=== PATIENT | female | born 1970 | race Caucasian/White ===

== ENCOUNTER 2024-04-23 15:53 | Inpatient (IN) ==
--- NOTE | 2024-04-23 16:24 | Emergency Department Note ---
Impression & Plan Bronchitis, Obesity hypoventilation syndrome, Hypoxia ED Provider Note CHIEF COMPLAINT: Cough, "my doctor thinks I have pneumonia" HISTORY OF PRESENT ILLNESS: This 53-year-old female patient presents to the emergency department via private vehicle for evaluation of cough and shortness of breath. Symptoms been ongoing for about a week and a half. Patient was seen by her primary care provider and subsequently by [facility] emergency department. She was started on Augmentin. She is also using nebulizer treatments as well as an albuterol inhaler. The patient was on a 5-day course of steroids and states that that did not seem to help. She is currently on day 4 of Augmentin without any relief. The patient denies any leg pain or swelling. No chest pain. She states that is hard for her to catch her breath. History provided by: Patient REVIEW OF SYSTEMS: A 10 system review of systems was performed with positives and pertinent negatives listed in the history of present illness. All other systems were reviewed and are negative. ALLERGIES: Clotrimazole, metformin, miconazole, Klonopin PHYSICAL EXAM: VITALS: Vitals are noted on the nurse's note and reviewed by myself. GENERAL: This is a 53-year-old female, ill-appearing but in no acute distress, nondiaphoretic, well-developed well-nourished. SKIN: The skin was without rashes, erythema, edema, or bruising. There is no tenting of the skin. Capillary refill less than 2 seconds. HEAD: Normocephalic atraumatic. EARS: External auditory canals clear, tympanic membranes pearly alarcon without erythema or effusion bilaterally. No hemotympanum. Negative maddox sign EYES: Pupils equal round and reactive to light and accommodation. Conjunctivae without injection, sclerae without icterus. Extraocular movements intact. NOSE: Patent, turbinates without inflammation or discharge. No sinus tenderness. MOUTH: Mucous membranes moist. Tonsils are not enlarged. Pharynx without erythema or exudate. Uvula midline. Airway patent. Tongue does not deviate. NECK: Supple without nuchal rigidity. No lymphadenopathy. Cervical spine is nontender. No JVD. HEART: Regular rate and rhythm without murmurs gallops or rubs. LUNGS: Diffuse wheezes in all lung adame. Increased work of breathing. No retractions or accessory muscle use. ABDOMEN: Positive bowel sounds x 4. Soft, nontender, without masses or organomegaly. Gudino sign negative. No guarding or rebound tenderness. MUSCULOSKELETAL: No muscle atrophy, erythema, or edema noted. Full range of motion without joint tenderness in all extremities. No tenderness to palpation. Normal gait. Strength 5/5 throughout. NEURO: Patient was alert and oriented to person place and time. No focal neurological deficits. An order was placed for continuous vehicle monitor technician. The monitor showed a normal sinus rhythm at a ventricular rate of 66 bpm, per my interpretation. EKG was reviewed by myself and found to be Normal Sinus Rhythm at a rate of 68 beats per minute and per my interpretation reveals no ST elevation or depression. No T wave inversion. No significant change when compared to EKG completed on 09/25/2018. Imaging as interpreted by myself and the radiologist revealed cardiomegaly with mild pulmonary vascular congestion. No infiltrate, pleural effusion, or pneumothorax, with radiologist interpretation as above. I agree with the radiologist's findings as based upon my independent interpretation. EMERGENCY DEPARTMENT COURSE: The patient was seen and evaluated as above. The patient presents to the emergency department for cough and wheezing. Symptoms been ongoing for about a week and a half. On examination, the patient has diffuse wheezing in all lung adame with increased work of breathing. She was referred to the emergency department by her PCP for evaluation for possible pneumonia. IV access was obtained, labs were drawn. Patient was medicated with an hour- long DuoNeb and 60 mg IV Solu-Medrol. Labs reviewed. Per my interpretation, mild leukocytosis 11.18. No anemia or thrombocytopenia. Renal, hepatic function and electrolytes without significant abnormality. Coags normal. BNP 49. Troponin 8.4. Urinalysis negative for blood or evidence of infection. Respiratory bio fire testing was negative. Chest x-ray as above. EKG without ischemic changes. Administration of the DuoNeb treatment and Solu-Medrol, the patient was reassessed. At this time, the patient is hypoxic with an O2 saturation of 88% on room air. She was placed on oxygen via simple mask per nursing staff. I did reassess the patient at this time. Her work of breathing has somewhat improved and her wheezing is still present, but has improved as well. Given the hypoxia, I do recommend admission. I discussed the case with the [facility] hospitalist physician. Please see hospitalist dictation regarding ongoing management care of this patient. Case was discussed with the attending physician. I attest that I have personally reviewed the patient medication list. I attest that I have reviewed the patient's blood pressure and it was found to be elevated. Suspect this to be situational in nature GCS: 15 In the evaluation and treatment of this patient the following differential diagnoses were entertained: Reactive airway disease, pneumonia, pneumothorax, COPD, CHF, infections, cardiac ischemia, pulmonary embolism, musculoskeletal, gastrointestinal, as well as other pathologies. The chart was completed utilizing [employer] Speech voice recognition software. Grammatical errors, random word insertions, pronoun errors, and incomplete sentences are an occasional consequence of this system due to software limitations, ambient noise, and hardware issues. Any formal questions or concerns about the content, text, or information contained within the body of this dictation should be directly addressed to the provider for clarification. Past Med/Surg History Problem List (Updated 04/23/24 @ 22:42 by Jenn Duvall PA-C) Hypoxia (Acute) Obesity hypoventilation syndrome (Acute) Bronchitis (Acute) Encounter for pre-operative examination Vitamin D deficiency Anemia Diabetic neuropathy Diabetic retinopathy Diabetes mellitus type 2 with complications Essential tremor Obesity Esophageal reflux HLD (hyperlipidemia) Hypothyroidism Insomnia Generalized anxiety disorder Depression Trochanteric bursitis of left hip Ventral hernia Osteoarthritis Lumbar disc herniation with radiculopathy (Acute) Lumbar disc disease Chronic back pain (Acute) Asthma (Chronic) Hypertension (Chronic) Medical History Lumbar disc disease No surgeries - Difficulty laying flat or getting up from position PONV (postoperative nausea and vomiting) Frozen shoulder Right - as per patient "Does not function well at all" [place] (hard of hearing) no hearing aids Osteoarthritis Hypothyroidism HTN (hypertension) Hyperlipidemia Generalized anxiety disorder Essential tremor Diabetic neuropathy Diabetes mellitus, type 2 IDDM Depression Asthma PRN inh use Anemia Esophageal reflux Pancreatitis hx History of blood transfusion Infancy ?RH incompatibility Migraine hx Surgical History Hx of esophagogastroduodenoscopy History of gastric bypass (2014) History of hernia repair History of dental surgery History of laparoscopy H/O foot surgery S/P cholecystectomy Family History Mother Family history of diabetes mellitus Heart disease Father Family history of diabetes mellitus Heart disease COPD (chronic obstructive pulmonary disease) Social History Smoking Status: Former smoker Tobacco Type: Cigarettes Age Started Using Tobacco: 16; Age Quit Using Tobacco: 23; packs per day: 0.1; Cigarettes Per Day: SOCIAL SMOKER X5 YEAR; Second Hand Exposure: No; Do You Dip or Chew Tobacco: No; Hx Alcohol Use: No Hx Substance Use: No Preferred Language: Macedonian Communication Ability: Effective Visual Impairment: Partially Limited Hearing Ability: Hard of Hearing 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 Beliefs That Will Affect Care: None marital status: Current Living Situation: Spouse Current Living Situation Comment: does not live w/ spouse, lives w/ her animals current occupational status: disabled How many Children do You have: 0 Feels Safe at Home: Yes Childhood Exposure to Second-Hand Smoke: Yes Diet: other Diet Comment: does not follow a special diet caffeine: Yes Dental Care, Regularly: No Physical Activity Frequency: Does not Exercise Seatbelt Use: always Sunscreen Use: No Assistive Devices: Denture - Upper, Denture - Lower and Glasses Allergies Allergies Allergy/AdvReac Type Severity Reaction Status Date / Time clotrimazole Allergy Itching Verified 04/23/24 14:29 metformin Allergy Gastrointestinal Verified 04/23/24 14:29 Upset miconazole Allergy Itching Verified 04/23/24 14:29 adhesive tape AdvReac Itching Verified 04/23/24 14:29 clonazepam [From Klonopin] AdvReac Unknown Verified 04/23/24 14:29 Home Meds Home Medications Medication Instructions Recorded Confirmed pen needle, diabetic 31 gauge x 07/28/21 04/23/24 3/16" (BD Ultra-Fine Mini Pen Needle) aspirin 81 mg tablet,delayed 81 mg PO QAM 10/09/21 04/23/24 release amlodipine 10 mg tablet (Norvasc) 10 mg PO QAM 04/01/24 04/23/24 doxepin 6 mg tablet (Silenor) 6 mg PO HS 04/01/24 04/23/24 famotidine 40 mg tablet (Pepcid) 40 mg PO QAM 04/01/24 04/23/24 fluoxetine 40 mg capsule (Prozac) 80 mg PO QAM 04/01/24 04/23/24 fluticasone furoate 200 1 inh inhalation DAILY PRN 04/01/24 04/23/24 mcg-vilanterol 25 mcg/dose Shortness Of Breath inhalation powder (Breo Ellipta) levothyroxine 175 mcg tablet 175 mcg PO QAM 04/01/24 04/23/24 losartan 100 mg tablet (Cozaar) 100 mg PO QAM 04/01/24 04/23/24 pantoprazole 40 mg tablet,delayed 40 mg PO QAM 04/01/24 04/23/24 release (Protonix) primidone 50 mg tablet 100 mg PO HS 04/01/24 04/23/24 propranolol 120 mg capsule,24 120 mg PO QAM 04/01/24 04/23/24 hr,extended release amoxicillin 875 mg-potassium 1 tab PO BID 04/23/24 04/23/24 clavulanate 125 mg tablet Previous Rx's Medication Instructions Recorded blood-glucose meter (FreeStyle #1 ea 07/26/23 Lite Meter kit) lancets 31 gauge (Comfort Touch #100 ea 07/26/23 Ultra Thin Lancets) clobetasol 0.05 % topical cream 1 applic topical BID PRN rash #60 09/11/23 grams albuterol sulfate 90 mcg/actuation 2 puff inhalation Q4H PRN 01/28/24 aerosol inhaler Shortness Of Breath #8.5 grams blood sugar diagnostic (FreeStyle #540 ea 01/28/24 Lite Strips) insulin lispro 100 unit/mL See Rx Instructions subcut TIDM 02/04/24 subcutaneous pen (Humalog KwikPen #45 syringes (U-100) Insulin) betamethasone dipropionate 0.05 % 1 applic topical BID PRN skin 02/19/24 topical cream irritation #45 grams insulin glargine 100 unit/mL (3 93 unit (0.93 mL) subcut BID 90 02/26/24 mL) subcutaneous pen (Lantus days #167.4 mL Solostar U-100 Insulin) semaglutide 2 mg/dose (8 mg/3 mL) 2 mg (0.75 mL) subcut .weekly 90 03/03/24 subcutaneous pen injector (Ozempic) days #9 mL sucralfate 1 gram tablet (Carafate) 1 g PO .COMPLEX #360 tabs 03/12/24 tramadol 50 mg tablet 50 mg PO DAILY PRN Pain #30 tabs 03/19/24 pravastatin 40 mg tablet 40 mg PO QAM #90 tabs 04/14/24 benzonatate 200 mg capsule 200 mg PO TID PRN cough #60 caps 04/17/24 albuterol sulfate 1.25 mg/3 mL 1.25 mg (3 mL) inhalation Q6H PRN 04/21/24 solution for nebulization bronchospasm #75 mL compressor, for nebulizer #1 ea 04/21/24 tizanidine 4 mg tablet 4 mg PO Q8H PRN muscle spasticity 04/21/24 #60 tabs Results & Data (ED) Vital Signs Vital Signs - 24 hr 04/23/24 15:57 04/23/24 16:20 04/23/24 16:40 Temperature 36.9 C Temperature Source Temporal Artery Scan Pulse Rate 68 66 Pulse Rate [Apical] Pulse Rate [Right Brachial] Pulse Rhythm Regular Pulse Rhythm [Apical] Pulse Rhythm [Right Brachial] Pulse Strength [Apical] Pulse Strength [Right Brachial] Respiratory Rate 20 Respiratory Effort / Characteristics Non-Labored Spontaneous Respiratory Depth Normal Respiratory Pattern Blood Pressure 146/68 H Blood Pressure [Right Arm] Blood Pressure Mean 94 Blood Pressure Mean [Right Arm] Blood Pressure Position [Right Arm] Pulse Oximetry 92 Oxygen Delivery Method Room Air Room Air Oxygen Flow Rate Sepsis Recent Fever Within 48 Hours No Sepsis New/Unexplained Change in Mental Status No Sepsis Action Taken by Nursing No Action Required 04/23/24 16:40 04/23/24 16:40 04/23/24 17:00 Temperature Temperature Source Pulse Rate Pulse Rate [Apical] 65 Pulse Rate [Right Brachial] 65 Pulse Rhythm Pulse Rhythm [Apical] Pulse Rhythm [Right Brachial] Regular Pulse Strength [Apical] Pulse Strength [Right Brachial] Normal Respiratory Rate 22 21 Respiratory Effort / Characteristics Labored Short of Breath Spontaneous Short of Breath Respiratory Depth Deep Respiratory Pattern Blood Pressure Blood Pressure [Right Arm] 150/84 H Blood Pressure Mean Blood Pressure Mean [Right Arm] 106 Blood Pressure Position [Right Arm] Lying Pulse Oximetry 98 98 99 Oxygen Delivery Method Room Air Room Air Nebulizer Oxygen Flow Rate 7 Sepsis Recent Fever Within 48 Hours Sepsis New/Unexplained Change in Mental Status Sepsis Action Taken by Nursing 04/23/24 18:00 04/23/24 20:00 04/23/24 22:00 Temperature Temperature Source Pulse Rate Pulse Rate [Apical] 72 Pulse Rate [Right Brachial] 72 71 Pulse Rhythm Pulse Rhythm [Apical] Regular Pulse Rhythm [Right Brachial] Regular Regular Pulse Strength [Apical] Normal Pulse Strength [Right Brachial] Normal Normal Respiratory Rate 20 20 Respiratory Effort / Characteristics Labored Non-Labored Respiratory Depth Deep Normal Respiratory Pattern Regular Blood Pressure Blood Pressure [Right Arm] 174/80 H 165/79 H Blood Pressure Mean Blood Pressure Mean [Right Arm] 111 107 Blood Pressure Position [Right Arm] Lying Lying Pulse Oximetry 88 L 98 93 Oxygen Delivery Method Room Air Room Air Room Air Oxygen Flow Rate Sepsis Recent Fever Within 48 Hours Sepsis New/Unexplained Change in Mental Status Sepsis Action Taken by Nursing Laboratory Data 04/23/24 16:15 04/23/24 16:15 Lab Results 04/23/24 04/23/24 04/23/24 Range/Units 16:15 16:23 16:55 WBC 11.18 H (4.8-10.8) K/ul RBC 4.84 (4.20-5.40) M/uL Hgb 12.6 (12.0-16.0) g/dl Hct 38.1 (37.0-47.0) % MCV 78.7 L (80.0-100.0) fL MCH 26.0 (25.0-34.0) pg MCHC 33.1 (32.0-36.0) g/dL RDW Std Deviation 41.4 (36.4-46.3) fL RDW Coeff of Mickey 14.6 H (11.5-14.5) % Plt Count 301 (130-400) K/uL MPV 9.9 (9.4-12.4) fL Immature Gran % (Auto) 0.4 % Neut % (Auto) 64.7 % Lymph % (Auto) 24.0 % Vance % (Auto) 9.3 % Eos % (Auto) 1.2 % Baso % (Auto) 0.4 % Neut # (Auto) 7.24 H (1.40-6.50) K/uL Lymph # (Auto) 2.68 (1.20-3.40) K/uL Vance # (Auto) 1.04 H (0.11-0.59) K/uL Eos # (Auto) 0.13 (0.00-0.50) K/uL Baso # (Auto) 0.04 (0.00-0.20) K/uL Immature Gran # (Auto) 0.05 (0.01-0.20) K/uL PT 10.9 (9.0-12.0) Seconds INR 1.0 (0.9-1.1) APTT 28 (21-31) Seconds PTT Ratio 1.0 VBG pH (7.36-7.41) VBG pCO2 (38-50) mmHg VBG pO2 mmHg VBG HCO3 mmol/L VBG O2 Saturation % VBG Base Excess mEq/L Sodium 135 L (136-145) mmol/L Potassium 4.0 (3.5-5.1) mmol/L Chloride 97 L (98-107) mmol/L Carbon Dioxide 29 (21-32) mmol/L Anion Gap 9 (3-11) BUN 23 (6-23) mg/dl Creatinine 0.98 (0.6-1.2) mg/dl Est Cr Clr Drug Dosing 92.4 ml/min eGFR 68.16 BUN/Creatinine Ratio 23.5 H (10-20) Glucose 95 (70-99(Fasting)) mg/dl Calcium 9.1 (8.6-10.3) mg/dl Magnesium 2.2 (1.7-2.4) mg/dl Total Bilirubin 0.8 (0.2-1.0) mg/dl AST 31 (13-39) U/L ALT 36 (7-52) U/L Alkaline Phosphatase 110 H (34-104) U/L Troponin I High Sens 8.4 (0-14) pg/ml B-Natriuretic Peptide 49 (0-100) pg/ml Total Protein 7.9 (6.0-8.3) gm/dl Albumin 3.7 (3.4-5.0) gm/dl Globulin 4.2 H (2.5-4.0) gm/dl Albumin/Globulin Ratio 0.9 (0.9-2) Procalcitonin 0.12 (0-0.5) ng/ml Urine Color Urine Appearance (Clear) Urine pH (4.5-7.5) Ur Specific Wilson (1.000-1.030) Urine Protein (Negative) Urine Glucose (UA) (Negative) Urine Ketones (Negative) Urine Blood (Negative) Urine Nitrite (Negative) Urine Bilirubin (Negative) Urine Urobilinogen (Negative) Ur Leukocyte Esterase (Negative) Urine WBC (Auto) (0-5) /hpf Urine RBC (Auto) (0-2) /hpf U Hyaline Cast (Auto) (0-2) /lpf U Epithel Cells (Auto) (0-2) /hpf Urine Bacteria (Auto) (None Seen) Adenovirus (PCR) Not Detected (NotDetected) B. pertussis DNA (PCR) Not Detected (NotDetected) B.parapertussis DNA PCR Not Detected (NotDetected) C. pneumoniae DNA (PCR) Not Detected (NotDetected) Coronavirus OC43 (PCR) Not Detected (NotDetected) Coronavirus HKU1 (PCR) Not Detected (NotDetected) Coronavirus 229E (PCR) Not Detected (NotDetected) SARS-CoV-2 (PCR) Not Detected (NotDetected) Coronavirus NL63 (PCR) Not Detected (NotDetected) Human Metapneumovir PCR Not Detected (NotDetected) Influenza Type A (PCR) Not Detected (NotDetected) Influenza Type B (PCR) Not Detected (NotDetected) M. pneumoniae (PCR) Not Detected (NotDetected) Parainfluenza 1 (PCR) Not Detected (NotDetected) Parainfluenza 2 (PCR) Not Detected (NotDetected) Parainfluenza 3 (PCR) Not Detected (NotDetected) Parainfluenza 4 (PCR) Not Detected (NotDetected) RSV (PCR) Not Detected (NotDetected) Entero/Rhino (PCR) Not Detected (NotDetected) 04/23/24 04/23/24 Range/Units 18:26 Unknown WBC (4.8-10.8) K/ul RBC (4.20-5.40) M/uL Hgb (12.0-16.0) g/dl Hct (37.0-47.0) % MCV (80.0-100.0) fL MCH (25.0-34.0) pg MCHC (32.0-36.0) g/dL RDW Std Deviation (36.4-46.3) fL RDW Coeff of Mickey (11.5-14.5) % Plt Count (130-400) K/uL MPV (9.4-12.4) fL Immature Gran % (Auto) % Neut % (Auto) % Lymph % (Auto) % Vance % (Auto) % Eos % (Auto) % Baso % (Auto) % Neut # (Auto) (1.40-6.50) K/uL Lymph # (Auto) (1.20-3.40) K/uL Vance # (Auto) (0.11-0.59) K/uL Eos # (Auto) (0.00-0.50) K/uL Baso # (Auto) (0.00-0.20) K/uL Immature Gran # (Auto) (0.01-0.20) K/uL PT (9.0-12.0) Seconds INR (0.9-1.1) APTT (21-31) Seconds PTT Ratio VBG pH 7.44 H (7.36-7.41) VBG pCO2 38 (38-50) mmHg VBG pO2 58 mmHg VBG HCO3 26 mmol/L VBG O2 Saturation 89.9 % VBG Base Excess 1.7 mEq/L Sodium (136-145) mmol/L Potassium (3.5-5.1) mmol/L Chloride (98-107) mmol/L Carbon Dioxide (21-32) mmol/L Anion Gap (3-11) BUN (6-23) mg/dl Creatinine (0.6-1.2) mg/dl Est Cr Clr Drug Dosing ml/min eGFR BUN/Creatinine Ratio (10-20) Glucose (70-99(Fasting)) mg/dl Calcium (8.6-10.3) mg/dl Magnesium (1.7-2.4) mg/dl Total Bilirubin (0.2-1.0) mg/dl AST (13-39) U/L ALT (7-52) U/L Alkaline Phosphatase (34-104) U/L Troponin I High Sens (0-14) pg/ml B-Natriuretic Peptide (0-100) pg/ml Total Protein (6.0-8.3) gm/dl Albumin (3.4-5.0) gm/dl Globulin (2.5-4.0) gm/dl Albumin/Globulin Ratio (0.9-2) Procalcitonin (0-0.5) ng/ml Urine Color Yellow Urine Appearance Clear (Clear) Urine pH 5.5 (4.5-7.5) Ur Specific Wilson 1.013 (1.000-1.030) Urine Protein 2+ H (Negative) Urine Glucose (UA) Negative (Negative) Urine Ketones Negative (Negative) Urine Blood Negative (Negative) Urine Nitrite Negative (Negative) Urine Bilirubin Negative (Negative) Urine Urobilinogen Negative (Negative) Ur Leukocyte Esterase Trace H (Negative) Urine WBC (Auto) 0-5 (0-5) /hpf Urine RBC (Auto) 0-2 (0-2) /hpf U Hyaline Cast (Auto) 3-5 H (0-2) /lpf U Epithel Cells (Auto) 0-2 (0-2) /hpf Urine Bacteria (Auto) None Seen (None Seen) Adenovirus (PCR) (NotDetected) B. pertussis DNA (PCR) (NotDetected) B.parapertussis DNA PCR (NotDetected) C. pneumoniae DNA (PCR) (NotDetected) Coronavirus OC43 (PCR) (NotDetected) Coronavirus HKU1 (PCR) (NotDetected) Coronavirus 229E (PCR) (NotDetected) SARS-CoV-2 (PCR) (NotDetected) Coronavirus NL63 (PCR) (NotDetected) Human Metapneumovir PCR (NotDetected) Influenza Type A (PCR) (NotDetected) Influenza Type B (PCR) (NotDetected) M. pneumoniae (PCR) (NotDetected) Parainfluenza 1 (PCR) (NotDetected) Parainfluenza 2 (PCR) (NotDetected) Parainfluenza 3 (PCR) (NotDetected) Parainfluenza 4 (PCR) (NotDetected) RSV (PCR) (NotDetected) Entero/Rhino (PCR) (NotDetected) Administered Medications Discontinued Medications Albuterol (Albut/Ipratrop 3mg/0.5mg Neb 3 Ml Vial) 12 ml NEB ONE ONE; Protocol Stop: 04/23/24 16:25 Last Admin: 04/23/24 16:36 Dose: 12 ml Documented By: JORDEN Methylprednisolone (Methylprednisolone 125 Mg/2 Ml Vial) 60 mg IV NOW STA Stop: 04/23/24 16:25 Last Admin: 04/23/24 16:37 Dose: 60 mg Documented By: JORDEN Imaging Data Radiologist's Impression: Chest X-Ray 04/23/24 16:11 INDICATION: Chest pain. TECHNIQUE: Frontal radiograph of the chest. COMPARISON: Radiograph from 05/16/2021. FINDINGS: Cardiomegaly. Mild pulmonary vascular congestion. No infiltrate, pleural effusion or pneumothorax. No acute osseous abnormality evident. IMPRESSION: Mild pulmonary vascular congestion. Electronically signed by Hitesh Pratt 04-23-2024 6:19 PM Discharge Plan Visit Data Chief Complaint: Shortness of Breath/Dyspnea Stated Complaint: CHEST PAIN, SOB, WHEEZING ED Provider: Alejandro Matt ED Midlevel Provider: Jenn Duvall Discharge Problem: Bronchitis, Obesity hypoventilation syndrome, Hypoxia Patient Disposition: Admitted As Inpatient Forms Stand Alone Forms: [facility] Prescriptions Prescriptions: No Action (DME) blood-glucose meter [FreeStyle Lite Meter] Kit See Rx Instructions .Route Qty: 1 0RF Rx Instructions: As directed test 6 x day dx E11.9 (DME) Comfort Touch Ult Thin Lancets 31 gauge misc See Rx Instructions .Route Qty: 100 3RF Rx Instructions: As directed (DME) FreeStyle Lite Strips Strip See Rx Instructions .Route Qty: 540 3RF Rx Instructions: Test 6 times daily albuterol sulfate 90 mcg/actuation HFA aerosol inhaler 2 puff INHALATION Q4H PRN (Reason: Shortness Of Breath) Qty: 8.5 1RF insulin lispro [Humalog KwikPen Insulin] 100 unit/mL insulin pen See Rx Instructions SUBCUT TIDM Qty: 45 1RF Rx Instructions: subcutaneously three times daily with meals; SLIDING SCALE <100 none 101- 150 take 5 U 151- 200 take 10 U 201- 250 take 15U 251- 300 take 20U 301-350 take 25U 351-400 take 30U >400 call betamethasone dipropionate 0.05 % cream 1 applic topical BID PRN (Reason: skin irritation) Qty: 45 0RF Ozempic 2 mg/dose (8 mg/3 mL) pen injector 2 mg subcut .weekly 90 Days Qty: 9 3RF Rx Instructions: sucralfate [Carafate] 1 gram tablet 1 g PO .COMPLEX Qty: 360 2RF Rx Instructions: 1 g orally take 1 tablet by mouth before meals and at bedtime; tramadol 50 mg tablet 50 mg PO DAILY PRN (Reason: Pain) Qty: 30 0RF pravastatin 40 mg tablet 40 mg PO QAM Qty: 90 3RF tizanidine 4 mg tablet 4 mg PO Q8H PRN (Reason: muscle spasticity) Qty: 60 3RF (DME) compressor, for nebulizer Device See Rx Instructions .Route Qty: 1 0RF Rx Instructions: Every 6 hours as directed as needed albuterol sulfate 1.25 mg/3 mL solution for nebulization 1.25 mg inhalation Q6H PRN (Reason: bronchospasm) Qty: 75 1RF (DME) pen needle, diabetic [BD Ultra-Fine Mini Pen Needle] 31 gauge x 3/16" needle See Rx Instructions .Route Rx Instructions: As directed insulin glargine [Lantus Solostar U-100 Insulin] 100 unit/mL (3 mL) insulin pen 93 unit subcut BID 90 Days Qty: 167.4 3RF amoxicillin-pot clavulanate 875-125 mg tablet 1 tab PO BID benzonatate 200 mg capsule 200 mg PO TID PRN (Reason: cough) Qty: 60 1RF clobetasol 0.05 % cream 1 applic topical BID PRN (Reason: rash) Qty: 60 0RF aspirin 81 mg Tablet,Delayed Release (Dr/Ec) 81 mg PO QAM propranolol 120 mg Capsule,Extended Release 24hr 120 mg PO QAM Patient Comments: "Its for essential tremors" fluoxetine [Prozac] 40 mg capsule 80 mg PO QAM levothyroxine 175 mcg tablet 175 mcg PO QAM primidone 50 mg tablet 100 mg PO HS famotidine [Pepcid] 40 mg tablet 40 mg PO QAM amlodipine [Norvasc] 10 mg tablet 10 mg PO QAM pantoprazole [Protonix] 40 mg tablet,delayed release (DR/EC) 40 mg PO QAM losartan [Cozaar] 100 mg tablet 100 mg PO QAM doxepin [Silenor] 6 mg tablet 6 mg PO HS fluticasone furoate-vilanterol [Breo Ellipta] 200-25 mcg/dose blister with device 1 inh inhalation DAILY PRN (Reason: Shortness Of Breath) Referrals Referrals: Nandini Isabel DO [Primary Care Provider] -
[2024-04-23] MEDS: ALBUT/IPRATROP 3MG/0.5MG NEB 3 ML VIAL NEB ONE (16:36)
[2024-04-23] MEDS: methylPREDNISolone 125 MG/2 ML VIAL IV STA (16:37)
[2024-04-23 16:42] LABS: Basophils # (auto) 0.04 K/uL (0.00-0.20); Basophils % (auto) 0.4 %; Eosinophils # (auto) 0.13 K/uL (0.00-0.50); Eosinophils % (auto) 1.2 %; Hematocrit (blood only) 38.1 % (37.0-47.0); Hemoglobin 12.6 g/dl (12.0-16.0); Immature Granulocytes # (auto) 0.05 K/uL (0.01-0.20); Immature Granulocytes % (auto) 0.4 %; Lymphocytes # (auto) 2.68 K/uL (1.20-3.40); Mean Corpuscular Hgb Conc 33.1 g/dL (32.0-36.0); Mean Corpuscular Volume 78.7 fL (80.0-100.0); Mean Platelet Volume 9.9 fL (9.4-12.4); Monocytes # (auto) 1.04 K/uL (0.11-0.59); Monocytes % (auto) 9.3 %; Neutrophils # (auto) 7.24 K/uL (1.40-6.50); Neutrophils % (auto) 64.7 %; Platelet Count 301 K/uL (130-400); RDW Coefficient of Variation 14.6 % (11.5-14.5); RDW Standard Deviation 41.4 fL (36.4-46.3); Red Blood Count 4.84 M/uL (4.20-5.40); White Blood Count 11.18 K/ul (4.8-10.8)
[2024-04-23 16:58] LABS: Albumin Globulin Ratio 0.9 (0.9-2); Albumin Level 3.7 gm/dl (3.4-5.0); BUN Creatinine Ratio 23.5 (10-20); Bilirubin,Total 0.8 mg/dl (0.2-1.0); Calcium 9.1 mg/dl (8.6-10.3); Creatinine Clr Calc Pharmacy 92.4 ml/min; Globulin 4.2 gm/dl (2.5-4.0); Magnesium 2.2 mg/dl (1.7-2.4); Total Protein 7.9 gm/dl (6.0-8.3)
[2024-04-23 17:03] LABS: Troponin I High Sensitivity 8.4 pg/ml (0-14)
[2024-04-23 17:05] LABS: Partial Thromboplastin Time 28 Seconds (21-31); Prothrombin Time 10.9 Seconds (9.0-12.0)
[2024-04-23 18:00] LABS: Adenovirus PCR Not Detected (NotDetected); Bordetella parapertussis PCR Not Detected (NotDetected); Bordetella pertussis PCR Not Detected (NotDetected); Chlamydia pneumoniae PCR Not Detected (NotDetected); Coronavirus 229E PCR Not Detected (NotDetected); Coronavirus CoV-2 (COVID19)PCR Not Detected (NotDetected); Coronavirus HKU1 PCR Not Detected (NotDetected); Coronavirus NL63 PCR Not Detected (NotDetected); Coronavirus OC43PCR Not Detected (NotDetected); Human Metapneumovirus PCR Not Detected (NotDetected); Influenza A PCR Not Detected (NotDetected); Influenza B PCR Not Detected (NotDetected); Mycoplasma pneumoniae PCR Not Detected (NotDetected); Parainfluenza Virus 1 PCR Not Detected (NotDetected); Parainfluenza Virus 2 PCR Not Detected (NotDetected); Parainfluenza Virus 3 PCR Not Detected (NotDetected); Parainfluenza Virus 4 PCR Not Detected (NotDetected); Respiratory Syncytial VirusPCR Not Detected (NotDetected); Rhinovirus/Enterovirus PCR Not Detected (NotDetected)
[2024-04-23 18:48] LABS: Appearance Urine Clear (Clear); Bacteria Urine Automated None Seen (None Seen); Bilirubin Urine Negative (Negative); Blood Urine Negative (Negative); Color Urine Yellow; Epithelial Cell Urine Auto 0-2 /hpf (0-2); Glucose Urine UA Negative (Negative); Ketones Urine Negative (Negative); Leukocyte Esterase Urine Trace (Negative); Nitrite Urine Negative (Negative); Protein Urine 2+ (Negative); RBC Urine Automated 0-2 /hpf (0-2); Specific Gravity Urine 1.013 (1.000-1.030); Urobilinogen Urine Negative (Negative); WBC Urine Automated 0-5 /hpf (0-5); pH Urine 5.5 (4.5-7.5)
--- NOTE | 2024-04-23 20:53 | History & Physical Report ---
Date of Service April 23, 2024 Assessment & Plan (1) Bronchitis: Plan: likely acute on chronic - discontinuing Augmentin rx from 04/20 due to low suspicion of bacterial pneumonia - continue home medications for bronchospasm and SOB - adding Duonebs Q4H to alternate with home albuterol - guaifenesin 1200mg BID to help expectorate - BiPAP/CPAP as needed nightly - incentive spirometer Q4H waking hours - pulmonology consult ordered - if MRSA nares / procal positive, can start doxycycline 100mg BID for 5 days - if condition worsens and clinical suspicion of pneumonia is high, cxr vs chest CT labs: - mildly elevated white count, may be related to recent prednisone course - biofire negative (2) Obesity hypoventilation syndrome: Plan: morbid obesity as a probable contributing factor to pt's bronchitis - satting 95% on room air currently, has O2 set to 6L/min - trend VBG with morning labs - meds and breathing treatments as above - pulmonology consult ordered (3) Asthma: Plan: chronic orders as above (4) Diabetes mellitus type 2 with complications: Plan: chronic holding home Ozempic ACHS glucose checks changing home insulin to the following: - lantus 45U BID - Novolog: correction factor 15mg/dL/unit; carb ratio 5g/unit Goal BSG range: 110-140 (5) Hypertension: Plan: continue home HTN regimen History of Present Illness Chief Complaint: SOB, cough Primary Care Provider: Nandini Isabel DO Shanell is a 53yo female with PMHx bronchitis, asthma, morbid obesity, DM2 with neuropathy and retinopathy on insulin presenting to the ED the a week and a half of worsening cough and SOB. Started with upper respiratory symptoms a week and a half ago, went to her PCP on 04/17 and they sent her home with a 5 day course of oral prednisone and benzonatate which she says didn't help her symptoms much. PCP also order her an albuterol nebulizer, which she feels isn't helping because she can't take deep enough breaths. Endorses that for the past 4 nights she has had to sleep in a recliner chair with back elevated, as she says it is hard for her to breathe when lying flat, which she notes is not typical for her. Has been taking all of her home asthma medications but denies significant relief. Went to [facility] on 04/20 for worsening symptoms, states they did not do a cxr but just discharged her with a 10 day course of Augmentin 875-125mg BID. Currently on day 4 and denies any improvement of cough or SOB, so she came to [facility] ER. Denies any fever, body aches, chills, sweats, chest pain, hemoptysis, dizziness, lightheadedness, headache, vision changes, abdominal pain. Denies any recent travel or exposure to any sick or symptomatic people. Currently lives at home with , 2 cats and a dog. Denies anything new inside home within the last few months or significant environmental exposure. Allergies Allergy/AdvReac Type Severity Reaction Status Date / Time clotrimazole Allergy Itching Verified 04/23/24 14:29 metformin Allergy Gastrointestinal Verified 04/23/24 14:29 Upset miconazole Allergy Itching Verified 04/23/24 14:29 adhesive tape AdvReac Itching Verified 04/23/24 14:29 clonazepam [From Klonopin] AdvReac Unknown Verified 04/23/24 14:29 Home Medications Medication Instructions Recorded Confirmed Type pen needle, diabetic 31 gauge x 07/28/21 04/23/24 History 3/16" (BD Ultra-Fine Mini Pen Needle) aspirin 81 mg tablet,delayed 81 mg PO QAM 10/09/21 04/23/24 History release blood-glucose meter (FreeStyle #1 ea 07/26/23 04/23/24 Rx Lite Meter kit) lancets 31 gauge (Comfort Touch #100 ea 07/26/23 04/23/24 Rx Ultra Thin Lancets) clobetasol 0.05 % topical cream 1 applic topical BID PRN rash #60 09/11/23 1 06/23/23 Rx grams albuterol sulfate 90 mcg/actuation 2 puff inhalation Q4H PRN 01/28/24 04/23/24 Rx aerosol inhaler Shortness Of Breath #8.5 grams blood sugar diagnostic (FreeStyle #540 ea 01/28/24 04/23/24 Rx Lite Strips) insulin lispro 100 unit/mL See Rx Instructions subcut TIDM 02/04/24 04/23/24 Rx subcutaneous pen (Humalog KwikPen #45 syringes (U-100) Insulin) betamethasone dipropionate 0.05 % 1 applic topical BID PRN skin 02/19/24 04/23/24 Rx topical cream irritation #45 grams insulin glargine 100 unit/mL (3 93 unit (0.93 mL) subcut BID 02/26/2412/09 Rx mL) subcutaneous pen (Lantus days #167.4 mL Solostar U-100 Insulin) semaglutide 2 mg/dose (8 mg/3 mL) 2 mg (0.75 mL) subcut .weekly 03/03/24 04/23/24 Rx subcutaneous pen injector (Ozempic) days #9 mL sucralfate 1 gram tablet (Carafate) 1 g PO .COMPLEX #360 tabs 03/12/24 04/23/24 Rx tramadol 50 mg tablet 50 mg PO DAILY PRN Pain #30 tabs 03/19/24 04/23/24 Rx amlodipine 10 mg tablet (Norvasc) 10 mg PO QAM 04/01/24 04/23/24 History doxepin 6 mg tablet (Silenor) 6 mg PO HS 04/01/24 04/23/24 History famotidine 40 mg tablet (Pepcid) 40 mg PO QAM 04/01/24 04/23/24 History fluoxetine 40 mg capsule (Prozac) 80 mg PO QAM 04/01/24 04/23/24 History fluticasone furoate 200 1 inh inhalation DAILY PRN 04/01/24 04/23/24 History mcg-vilanterol 25 mcg/dose Shortness Of Breath inhalation powder (Breo Ellipta) levothyroxine 175 mcg tablet 175 mcg PO QAM 04/01/24 04/23/24 History losartan 100 mg tablet (Cozaar) 100 mg PO QAM 04/01/24 04/23/24 History pantoprazole 40 mg tablet,delayed 40 mg PO QAM 04/01/24 04/23/24 History release (Protonix) primidone 50 mg tablet 100 mg PO HS 04/01/24 04/23/24 History propranolol 120 mg capsule,24 120 mg PO QAM 04/01/24 04/23/24 History hr,extended release pravastatin 40 mg tablet 40 mg PO QAM #90 tabs 04/14/24 04/23/24 Rx benzonatate 200 mg capsule 200 mg PO TID PRN cough #60 caps 04/17/24 04/23/24 Rx albuterol sulfate 1.25 mg/3 mL 1.25 mg (3 mL) inhalation Q6H PRN 04/21/24 04/23/24 Rx solution for nebulization bronchospasm #75 mL compressor, for nebulizer #1 ea 04/21/24 04/23/24 Rx tizanidine 4 mg tablet 4 mg PO Q8H PRN muscle spasticity 04/21/24 04/23/24 Rx #60 tabs amoxicillin 875 mg-potassium 1 tab PO BID 04/23/24 04/23/24 History clavulanate 125 mg tablet Past Med/Surg History Problem List (Updated 04/23/24 @ 22:42 by Jenn Duvall PA-C) Hypoxia (Acute) Obesity hypoventilation syndrome (Acute) Bronchitis (Acute) Encounter for pre-operative examination Vitamin D deficiency Anemia Diabetic neuropathy Diabetic retinopathy Diabetes mellitus type 2 with complications Essential tremor Obesity Esophageal reflux HLD (hyperlipidemia) Hypothyroidism Insomnia Generalized anxiety disorder Depression Trochanteric bursitis of left hip Ventral hernia Osteoarthritis Lumbar disc herniation with radiculopathy (Acute) Lumbar disc disease Chronic back pain (Acute) Asthma (Chronic) Hypertension (Chronic) Medical History Lumbar disc disease No surgeries - Difficulty laying flat or getting up from position PONV (postoperative nausea and vomiting) Frozen shoulder Right - as per patient "Does not function well at all" [place] (hard of hearing) no hearing aids Osteoarthritis Hypothyroidism HTN (hypertension) Hyperlipidemia Generalized anxiety disorder Essential tremor Diabetic neuropathy Diabetes mellitus, type 2 IDDM Depression Asthma PRN inh use Anemia Esophageal reflux Pancreatitis hx History of blood transfusion Infancy ?RH incompatibility Migraine hx Surgical History Hx of esophagogastroduodenoscopy History of gastric bypass (2014) History of hernia repair History of dental surgery History of laparoscopy H/O foot surgery S/P cholecystectomy Family History Mother Family history of diabetes mellitus Heart disease Father Family history of diabetes mellitus Heart disease COPD (chronic obstructive pulmonary disease) Social History Smoking Status: Former smoker Tobacco Type: Cigarettes Age Started Using Tobacco: 16; Age Quit Using Tobacco: 23; packs per day: 0.1; Cigarettes Per Day: SOCIAL SMOKER X5 YEAR; Second Hand Exposure: No; Do You Dip or Chew Tobacco: No; Hx Alcohol Use: No Hx Substance Use: No Preferred Language: Greek Communication Ability: Effective Visual Impairment: Partially Limited Hearing Ability: Hard of Hearing 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 Beliefs That Will Affect Care: None marital status: Current Living Situation: Spouse Current Living Situation Comment: does not live w/ spouse, lives w/ her animals current occupational status: disabled How many Children do You have: 0 Feels Safe at Home: Yes Childhood Exposure to Second-Hand Smoke: Yes Diet: other Diet Comment: does not follow a special diet caffeine: Yes Dental Care, Regularly: No Physical Activity Frequency: Does not Exercise Seatbelt Use: always Sunscreen Use: No Assistive Devices: Denture - Upper, Denture - Lower and Glasses Review of Systems Review of Systems: per HPI Physical Exam Physical Exam: Constitutional: A&Ox4, appears stated age, not appearing in acute distress HEENT: NC/AT, EOM intact, anicteric sclerae Respiratory: coarse breath sounds and scattered wheezes throughout, fair and equal air entry b/l Cardiovascular: regular rate and rhythm, no murmurs/rubs/gallops GI: abdomen soft, normoactive bowel sounds, nontender to palpation MSK: 5/5 strength in all extremities Results & Data Results & Data Vital Signs (Past 12 Hours) Vital Signs Temp Pulse Pulse Pulse Resp BP BP 04/23/24 20:00 72 72 20 174/80 H 04/23/24 18:00 04/23/24 17:00 65 21 04/23/24 16:40 04/23/24 16:40 65 22 150/84 H 04/23/24 16:40 04/23/24 16:20 66 04/23/24 15:57 36.9 C 68 20 146/68 H Pulse Ox O2 Del Method O2 Flow Rate 04/23/24 20:00 98 Room Air 04/23/24 18:00 88 L Room Air 04/23/24 17:00 99 Nebulizer 7 04/23/24 16:40 98 Room Air 04/23/24 16:40 98 Room Air 04/23/24 16:40 Room Air 04/23/24 16:20 04/23/24 15:57 92 Room Air Laboratory Results Abnormal lab results 04/23/24 04/23/24 04/23/24 Range/Units 16:15 18:26 Unknown WBC 11.18 H (4.8-10.8) K/ul MCV 78.7 L (80.0-100.0) fL RDW Coeff of Mickey 14.6 H (11.5-14.5) % Neut # (Auto) 7.24 H (1.40-6.50) K/uL Pender # (Auto) 1.04 H (0.11-0.59) K/uL VBG pH 7.44 H (7.36-7.41) Sodium 135 L (136-145) mmol/L Chloride 97 L (98-107) mmol/L BUN/Creatinine Ratio 23.5 H (10-20) Alkaline Phosphatase 110 H (34-104) U/L Globulin 4.2 H (2.5-4.0) gm/dl Urine Protein 2+ H (Negative) Ur Leukocyte Esterase Trace H (Negative) U Hyaline Cast (Auto) 3-5 H (0-2) /lpf Diagnostic Findings Chest X-Ray 04/23/24 16:11 INDICATION: Chest pain. TECHNIQUE: Frontal radiograph of the chest. COMPARISON: Radiograph from 05/16/2021. FINDINGS: Cardiomegaly. Mild pulmonary vascular congestion. No infiltrate, pleural effusion or pneumothorax. No acute osseous abnormality evident. IMPRESSION: Mild pulmonary vascular congestion. Supervising Physician Co-Signing Physician Notes Patient seen and examined, chart reviewed, case discussed with Justino Hayes and I agree with the assessment and plan as above except as otherwise noted Labs and images reviewed Shanell is a 53-year-old female with a past medical history of type II DM, obesity BMI 41.1, GERD, ventral hernia, chronic back pain, lumbar disc disease, hypertension who presented to the ER with cough and dyspnea. Cough and present shortness of breath began approximately 10 days ago, patient was on Augmentin/prednisone as an outpatient and was using nebulizers for underlying asthma but continues to progressively feel short of breath. On ER evaluation he was found to be hypoxic at 88%, with a mild leukocytosis, normal BMP/troponin, Chest x-ray reviewed, some pulmonary vascular congestion but no pulmonary edema and no evidence of lobar pneumonia. Her leukocytosis is minimal and without left shift, suspect related to steroids. Diffusely coarse breathing w/ rhonchi, without rales. BioFire is negative. Do not see evidence of lobar pneumonia on x-ray suspect bronchitis with concurrent asthma history patient. Denies history of tobacco use, denies COPD. Endorses history of asthma last PFTs many years ago. Wheezing reportedly improved following nebulizer treatment in ER but patient is hypoxic. Agree with treatment with flutter valve, incentive spirometry, Mucinex, DuoNebs as needed, continuing Breo. Suspect bronchitis + asthma exacerbation. No tachycardia. if MRSA nare/Pro-Brodie positive can tx with doxy x5 days, if negative discontinue antibiotics and treat as bronchitis and follow clinical progression. Procalcitonin ordered, white count trended, sputum culture pending. If high clinical suspicion for pneumonia or patient worsens, can follow-up with PA/lateral versus CT. Denies chest pain. Denies history of FL/CHF. Denies leg swelling other than some stasis when sleeping in her recliner. Notes when she lies flat she had increased dyspnea, but notes this is because the weight on her chest makes it hard to breath. Suspected OHS, given vascular congestion BNP evaluated which is normal, suspect OHS rather than CHF. VBG is added. If hypercapneic/resp acidosis is present --> NIV HS. History of type II DM, last A1c 8.5%. She is on sliding scale lispro and basal glargine 93 units twice daily. Admitting BSG is 95. She is continued on insulin 90 units twice daily with chested SSI CF 10/carb ratio 5. Due to extremely high requirements and steroid requirements pharmacy glycemic consult in place to follow and make adjustments as required. 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 BSG AC/at bedtime. Agree w/ above Resident Activity Tracking Resident Involvement: Resident Care Provided Care Provided: Adult Hospital Medicine (3) Asthma Asthma complication type: uncomplicated Asthma persistence: unspecified Asthma severity: unspecified severity Qualified Code(s): J45.909 - Unspecified asthma, uncomplicated (5) Hypertension Hypertension type: unspecified Qualified Code(s): I10 - Essential (primary) hypertension
[2024-04-23] MEDS ORDERED: PHARMACY GLYCEMIC MGMT CONSULT PRN (20:59)
[2024-04-23] MEDS ORDERED: GLUCAGON FOR INJ 1 MG VIAL SQ PRN (20:59)
[2024-04-23] MEDS ORDERED: DEXTROSE 50% 50 ML SYRINGE IV PRN (20:59)
[2024-04-23] MEDS ORDERED: GLUCOSE 40% GEL 15 GM TUBE PO PRN (20:59)
[2024-04-23] MEDS ORDERED: GLUCOSE 10 TAB/TUBE PO PRN (20:59)
[2024-04-23] MEDS ORDERED: POLYETHYLENE (MIRALAX) 17 GM PACK PO PRN (21:01)
[2024-04-23] MEDS ORDERED: ONDANSETRON INJ 2 MG/ML 2 ML VIAL IV PRN (21:01)
--- NOTE | 2024-04-23 21:06 | XRay Report ---
INDICATION: Chest pain. TECHNIQUE: Frontal radiograph of the chest. COMPARISON: Radiograph from 05/16/2021. FINDINGS: Cardiomegaly. Mild pulmonary vascular congestion. No infiltrate, pleural effusion or pneumothorax. No acute osseous abnormality evident. IMPRESSION: Mild pulmonary vascular congestion. Electronically signed by Hitesh Pratt 04-23-2024 6:19 PM
[2024-04-23 21:13] LABS: Base Excess VBG 1.7 mEq/L; HCO3 VBG 26 mmol/L; Oxygen Saturation VBG 89.9 %; PCO2 VBG 38 mmHg (38-50); PO2 VBG 58 mmHg; pH VBG 7.44 (7.36-7.41)
[2024-04-23] MEDS: LANTUS PER UNIT CHARGE SQ SCH (22:40)
[2024-04-23] MEDS: INSULIN ASPART PER UNIT CHARGE SC SCH (22:41)
[2024-04-23] MEDS ORDERED: traMADol HCL 50 MG TABLET PO PRN (23:34)
[2024-04-23] MEDS ORDERED: CLOBETASOL PROPIONATE 0.05% CREAM 15 GM TUBE TOP PRN (23:34)
[2024-04-23] MEDS ORDERED: FLUTICASONE/VILANTEROL 200/25MCG 14 PUFFS/INHALER INH PRN (23:34)
[2024-04-24] MEDS: ENOXAPARIN INJ 40 MG/0.4 ML SYR SQ SCH (00:05)
[2024-04-24] MEDS: INSULIN HUMAN REGULAR PER UNIT 10 UNITS in SYRINGE 9.9 ML IV ONE (00:06)
[2024-04-24] MEDS ORDERED: TRIAMCINOLONE ACET 0.5% CR 15 GM TUBE EXT PRN (00:12)
[2024-04-24] MEDS: SUCRALFATE 1 GM TAB PO SCH (00:54)
[2024-04-24] MEDS: tiZANidine HCL 4 MG TABLET PO PRN (00:54)
[2024-04-24] MEDS: MELATONIN 3 MG TAB PO PRN (00:54)
[2024-04-24] MEDS: INSULIN ASPART PER UNIT CHARGE SC SCH (01:16)
[2024-04-24] MEDS: INSULIN HUMAN REGULAR IV BOLUS 3 UNITS in SYRINGE 0 ML IV ONE (03:52)
[2024-04-24] MEDS: INSULIN REGULAR 250 UNITS in SODIUM CHLORIDE 0.9% 247.5 ML IV SCH (03:53)
[2024-04-24] MEDS: ALBUT/IPRATROP 3MG/0.5MG NEB 3 ML VIAL NEB SCH (03:56)
[2024-04-24] MEDS: LEVOTHYROXINE SODIUM 175 MCG TABLET PO SCH (06:13)
[2024-04-24] MEDS ORDERED: INSULIN ASPART PER UNIT CHARGE SC SCH (07:30)
[2024-04-24 08:30] LABS: Base Excess VBG 2.1 mEq/L; HCO3 VBG 29 mmol/L; Oxygen Saturation VBG < 60.0 %; PCO2 VBG 52 mmHg (38-50); PO2 VBG 30 mmHg; pH VBG 7.35 (7.36-7.41)
[2024-04-24] MEDS: LANTUS PER UNIT CHARGE SQ SCH (08:32)
[2024-04-24] MEDS: FLUoxetine HCL 20 MG CAP PO SCH (08:38)
[2024-04-24] MEDS: LOSARTAN POTASSIUM 50 MG TAB PO SCH (08:39)
[2024-04-24] MEDS: predniSONE 20 MG TAB PO SCH (08:40)
[2024-04-24] MEDS: PANTOprazole 40 MG TAB PO SCH (08:40)
[2024-04-24] MEDS: PRAVASTATIN SOD 40 MG TAB PO SCH (08:41)
[2024-04-24] MEDS: PROPRANOLOL HCL 60 MG LA CAP PO SCH (08:41)
[2024-04-24] MEDS: guaiFENesin 600 MG TABCR PO SCH (08:42)
[2024-04-24] MEDS: ASPIRIN 81 MG ECTAB PO SCH (08:43)
[2024-04-24] MEDS: amLODIPine BESYLATE 5 MG TAB PO SCH (08:43)
[2024-04-24 08:44] LABS: Appearance Urine Clear (Clear); Bacteria Urine Automated None Seen (None Seen); Bilirubin Urine Negative (Negative); Blood Urine Negative (Negative); Color Urine Yellow; Epithelial Cell Urine Auto 0-2 /hpf (0-2); Glucose Urine UA 3+ (Negative); Hyaline Casts Urine Present /lpf (None Presnt); Ketones Urine Trace (Negative); Leukocyte Esterase Urine Negative (Negative); Nitrite Urine Negative (Negative); Protein Urine 2+ (Negative); RBC Urine Automated 0-2 /hpf (0-2); Specific Gravity Urine 1.019 (1.000-1.030); Urobilinogen Urine Negative (Negative); WBC Urine Automated 0-5 /hpf (0-5); pH Urine 5.5 (4.5-7.5)
[2024-04-24 09:06] LABS: Albumin Globulin Ratio 0.9 (0.9-2); Albumin Level 3.4 gm/dl (3.4-5.0); BUN Creatinine Ratio 32.8 (10-20); Bilirubin,Total 0.3 mg/dl (0.2-1.0); Calcium 9.2 mg/dl (8.6-10.3); Creatinine Clr Calc Pharmacy 76.1 ml/min; Potassium 4.5 mmol/L (3.5-5.1); Total Protein 7.4 gm/dl (6.0-8.3)
--- NOTE | 2024-04-24 10:20 | Electrocardiogram Report ---
Test Reason : Blood Pressure : */* mmHG Vent. Rate : 68 BPM Atrial Rate : 68 BPM P-R Int : 146 ms QRS Dur : 78 ms QT Int : 430 ms P-R-T Axes : 51 42 60 degrees QTcB Int : 457 ms Normal sinus rhythm Normal ECG When compared with ECG of 25-Sep-2018 14:39, No significant change was found Confirmed by Prateek Celis ([id number]) on 04/24/2024 10:20:12 AM Referred By: REFERRED SELF Confirmed By: Prateek Celis
--- NOTE | 2024-04-24 11:05 | Pulmonary Consultation ---
Date of Consultation April 24, 2024 Assessment & Plan (1) Asthma-COPD overlap syndrome: (2) Asthmatic bronchitis with acute exacerbation: (3) Obesity: Plan Chest x-ray 04/23/2024 personally reviewed: Portable film, good inspiratory effort, bilateral costophrenic and cardiophrenic angles are clean, questionable retrocardiac opacity No other clear lung infiltrate -- Acute exacerbation of asthma-COPD overlap syndrome Used to smoke socially for approximately 15 years, quit at the age of 33 Respiratory BioFire negative for everything on 04/23/2024 Procalcitonin 0.12 Absolute eosinophil count 200 on 02/26/2024 -- Asthma On Breo 200 as an outpatient Would recommend to change to Trelegy 200 on a daily basis on discharge Add montelukast to the patient's regimen --Probable MOISES/OHS Recommend outpatient polysomnography Plan: DC Breo and rather put the patient on Brovana and budesonide nebulized treatment Add Mucomyst to the regimen along with Mucinex and flutter valve Add montelukast to her regimen Continue with prednisone Recommend to consider changing propranolol to some other medication Case was discussed with RN at bedside Please note the above document was generated using voice recognition software. It may contain grammatical, syntax or spelling errors.Any formal questions or concerns about the content, text or information contained within the body of this dictation should be directly addressed to the provider for clarification. History of Present Illness Attending Physician: Richard Nguyễn MD History of Present Illness 53-year-old female was admitted to the hospital for coughing and shortness of breath Past medical history: Asthma, diabetes type 2 with retinopathy Pulmonary consulted for the same At the time of examination patient was saturating well on room air Not in any respiratory distress. Was coughing. Stated that she is complaining of congestion not able to bring up the phlegm easily As per the patient everything started with nasal congestion. Which ended up with getting short of breath and wheezing. She is compliant with her Breo and uses it on a daily basis No fever, subjective chills No unusual headache or blurry vision No night sweats, no unintentional weight loss Denies any headache or blurry vision Social history: Socially smokes cigarettes for approximately 15 years quit at the age of 33 Pets: Has cats and dogs at home. Has a bird on the porch. Does not take care of the bird personally. Allergies: Seasonal Asthma: Questionable history of asthma in father was a smoker No history of lung cancer in the family Allergies Allergy/AdvReac Type Severity Reaction Status Date / Time clotrimazole Allergy Itching Verified 04/23/24 14:29 metformin Allergy Gastrointestinal Verified 04/23/24 14:29 Upset miconazole Allergy Itching Verified 04/23/24 14:29 adhesive tape AdvReac Itching Verified 04/23/24 14:29 clonazepam [From Klonopin] AdvReac Unknown Verified 04/23/24 14:29 Home Medications Medication Instructions Recorded Confirmed Type pen needle, diabetic 31 gauge x 07/28/21 04/23/24 History 3/16" (BD Ultra-Fine Mini Pen Needle) aspirin 81 mg tablet,delayed 81 mg PO QAM 10/09/21 04/23/24 History release blood-glucose meter (FreeStyle #1 ea 07/26/23 04/23/24 Rx Lite Meter kit) lancets 31 gauge (Comfort Touch #100 ea 07/26/23 04/23/24 Rx Ultra Thin Lancets) clobetasol 0.05 % topical cream 1 applic topical BID PRN rash #60 09/11/23 04/23/24 Rx grams albuterol sulfate 90 mcg/actuation 2 puff inhalation Q4H PRN 01/28/24 04/23/24 Rx aerosol inhaler Shortness Of Breath #8.5 grams blood sugar diagnostic (FreeStyle #540 ea 01/28/24 04/23/24 Rx Lite Strips) insulin lispro 100 unit/mL See Rx Instructions subcut TIDM 02/04/24 04/23/24 Rx subcutaneous pen (Humalog KwikPen #45 syringes (U-100) Insulin) betamethasone dipropionate 0.05 % 1 applic topical BID PRN skin 02/19/24 04/23/24 Rx topical cream irritation #45 grams insulin glargine 100 unit/mL (3 93 unit (0.93 mL) subcut BID 90 02/26/24 04/23/24 Rx mL) subcutaneous pen (Lantus days #167.4 mL Solostar U-100 Insulin) semaglutide 2 mg/dose (8 mg/3 mL) 2 mg (0.75 mL) subcut .weekly 90 03/03/24 04/23/24 Rx subcutaneous pen injector (Ozempic) days #9 mL sucralfate 1 gram tablet (Carafate) 1 g PO .COMPLEX #360 tabs 03/12/24 04/23/24 Rx tramadol 50 mg tablet 50 mg PO DAILY PRN Pain #30 tabs 03/19/24 04/23/24 Rx amlodipine 10 mg tablet (Norvasc) 10 mg PO QAM 04/01/24 04/23/24 History doxepin 6 mg tablet (Silenor) 6 mg PO HS 04/01/24 04/23/24 History famotidine 40 mg tablet (Pepcid) 40 mg PO QAM 04/01/24 04/23/24 History fluoxetine 40 mg capsule (Prozac) 80 mg PO QAM 04/01/24 04/23/24 History fluticasone furoate 200 1 inh inhalation DAILY PRN 04/01/24 04/23/24 History mcg-vilanterol 25 mcg/dose Shortness Of Breath inhalation powder (Breo Ellipta) levothyroxine 175 mcg tablet 175 mcg PO QAM 04/01/24 04/23/24 History losartan 100 mg tablet (Cozaar) 100 mg PO QAM 04/01/24 04/23/24 History pantoprazole 40 mg tablet,delayed 40 mg PO QAM 04/01/24 04/23/24 History release (Protonix) primidone 50 mg tablet 100 mg PO HS 04/01/24 04/23/24 History propranolol 120 mg capsule,24 120 mg PO QAM 04/01/24 04/23/24 History hr,extended release pravastatin 40 mg tablet 40 mg PO QAM #90 tabs 04/14/24 04/23/24 Rx benzonatate 200 mg capsule 200 mg PO TID PRN cough #60 caps 04/17/24 04/23/24 Rx albuterol sulfate 1.25 mg/3 mL 1.25 mg (3 mL) inhalation Q6H PRN 04/21/24 04/23/24 Rx solution for nebulization bronchospasm #75 mL compressor, for nebulizer #1 ea 04/21/24 04/23/24 Rx tizanidine 4 mg tablet 4 mg PO Q8H PRN muscle spasticity 04/21/24 04/23/24 Rx #60 tabs amoxicillin 875 mg-potassium 1 tab PO BID 04/23/24 04/23/24 History clavulanate 125 mg tablet Patient History Medical History Lumbar disc disease No surgeries - Difficulty laying flat or getting up from position PONV (postoperative nausea and vomiting) Frozen shoulder Right - as per patient "Does not function well at all" [place] (hard of hearing) no hearing aids Osteoarthritis Hypothyroidism HTN (hypertension) Hyperlipidemia Generalized anxiety disorder Essential tremor Diabetic neuropathy Diabetes mellitus, type 2 IDDM Depression Asthma PRN inh use Anemia Esophageal reflux Pancreatitis hx History of blood transfusion Infancy ?RH incompatibility Migraine hx Surgical History Hx of esophagogastroduodenoscopy History of gastric bypass (2014) History of hernia repair History of dental surgery History of laparoscopy H/O foot surgery S/P cholecystectomy Family History Mother Family history of diabetes mellitus Heart disease Father Family history of diabetes mellitus Heart disease COPD (chronic obstructive pulmonary disease) Social History Smoking Status: Never smoker Tobacco Type: Cigarettes Age Started Using Tobacco: 16; Age Quit Using Tobacco: 23; packs per day: 0.1; Cigarettes Per Day: SOCIAL SMOKER X5 YEAR; Second Hand Exposure: No; Do You Dip or Chew Tobacco: No; Hx Alcohol Use: No Hx Substance Use: No Preferred Language: Malay Communication Ability: Effective Visual Impairment: Partially Limited Hearing Ability: Hard of Hearing Employee'S Representative Required: Yes Beliefs That Will Affect Care: None marital status: Current Living Situation: Spouse Current Living Situation Comment: does not live w/ spouse, lives w/ her animals current occupational status: disabled How many Children do You have: 0 Feels Safe at Home: Yes Childhood Exposure to Second-Hand Smoke: Yes Diet: other Diet Comment: does not follow a special diet caffeine: Yes Dental Care, Regularly: No Physical Activity Frequency: Does not Exercise Seatbelt Use: always Sunscreen Use: No Assistive Devices: Nebulizer Review of Systems 2 Review of Systems: All systems reviewed & are unremarkable except as noted in HPI & below Physical Exam 2 Physical Exam: Constitutional: No acute distress HEENT: EOMI, PERRLA, facial hirsutism Respiratory system: Decreased air entry bilaterally, diffuse expiratory wheeze bilaterally, positive rhonchi, mild crackles bilateral lower lobes CVS: S1-S2 positive, no murmurs or gallops Abdomen: Soft, nontender, nondistended, positive bowel sounds x4, obese Extremities: +2 pulses bilaterally radialis/ dorsalis pedis, no cyanosis, no edema Neuro: Awake alert oriented x3 Psych: Normal mood and affect G/U: No Estrada Skin: no rashes, warm and dry Lymphatic: no cervical or axillary lymphadenopathy Results & Data Results & Data Vital Signs (Past 12 Hours) Vital Signs Temp Pulse Pulse Pulse Resp BP BP 04/24/24 10:51 83 18 04/24/24 08:38 68 138/70 04/24/24 07:25 04/24/24 07:13 36.4 C L 56 L 18 150/81 H 04/24/24 07:00 60 18 04/23/24 23:10 04/23/24 23:10 36.6 C 73 22 167/84 H Pulse Ox O2 Del Method O2 Flow Rate 04/24/24 10:51 95 Room Air 04/24/24 08:38 98 Room Air 04/24/24 07:25 Room Air 04/24/24 07:13 100 Nebulizer 04/24/24 07:00 95 Room Air 04/23/24 23:10 Nasal Cannula 2 04/23/24 23:10 95 Nasal Cannula 2 Laboratory Results 04/23/24 16:15 04/24/24 08:04 PG Care Time/CCT Total # of Minutes Spent Total Time Spent with Patient: Total time spent is greater than 50% in coordination of care (as documented) at patient's floor/unit and/or counseling patient: Coding Level of Care Code 87048 INT INP/OBS CARE MIN Diagnoses Asthma-COPD overlap syndrome J44.89 Asthmatic bronchitis with acute exacerbation J45.901 Obesity E66.9
--- NOTE | 2024-04-24 13:06 | Pharmacy Report ---
Pharmacy Glycemic Short Note 2 - Date of Service April 24, 2024 - Glycemic Short BSG Results (Last 24 hours): 04/23/24 04/23/24 04/23/24 16:15 22:27 23:30 Glucose 95 POC Glucose 307 H* 356 H* 04/23/24 04/24/24 04/24/24 23:34 01:00 01:02 Glucose POC Glucose 399 H* 356 H* 325 H* 04/24/24 04/24/24 04/24/24 02:31 03:50 05:02 Glucose POC Glucose 355 H* 317 H* 247 H 04/24/24 04/24/24 04/24/24 06:06 07:00 08:00 Glucose POC Glucose 236 H 203 H 186 H 04/24/24 04/24/24 04/24/24 08:04 09:05 11:39 Glucose 174 H POC Glucose 242 H 246 H OUTPATIENT ANTIDIABETIC REGIMEN: * Lantus 93 units SQ BID * Humalog SSI TID with meals * per scale (0-30 units, depending on BSG) * Semaglutide 2mg SQ weekly (on ) * HbA1c: 8.5% (02/26/24) ASSESSMENT: * Ms Claros is a 53yo diabetic F admitted with SOB. * Pt received one dose of IV SoluMedrol last evening, which looks to have had a significant effect on her BSGs last night. BSGs brenda above 300, so pt was started on an IV insulin infusion. * BSGs improved this morning, so pt was transitioned from IV to SQ insulin mgmt. * Pt is ordered ongoing steroid therapy, currently prednisone 40mg daily. * Given patient's insulin requirements at home (>200 units per day) and likelihood of steroid-induced hyperglycemia, expect that regimen may require further tightening. * Pharmacy will continue to follow and adjust regimen as indicated. Anticipate insulin requirements will decrease as steroids taper/stop. PLAN FOR INPATIENT GLYCEMIC CONTROL: * Hold outpatient oral diabetes medications * Basal insulin * Lantus 65 units SQ BID -- will give this evening's dose with dinner rather than at bedtime * Bolus insulin * NovoLog per scale ACHS or Q6hrs while NPO -- additional check overnight to provide additional coverage as needed * Goal Range: Low 110 mg/dL - High 140 mg/dL * Correction Factor: 10 mg/dL/unit * Nutritional / Prandial insulin per carb ratio of 1 unit per 3 grams CHO consumed
[2024-04-24] MEDS: COUGH DROP (SUGAR FREE) LOZ 24 LOZ/1 BOX BUCCAL ONE (14:28)
[2024-04-24] MEDS: ACETYLCYSTEINE 20% INHAL SOLN 4ML ***DISPENSED BY RESP. INH SCH (14:58)
--- NOTE | 2024-04-24 18:26 | Hospitalist Progress Note ---
Date of Service April 24, 2024 Assessment & Plan (1) Asthmatic bronchitis with acute exacerbation: Plan: Presented with worsening cough and SOB x 1.5 weeks and failure of outpatient treatment - Saw PCP on 04/17 and was given 5 day course of PO prednisone, benzonatate, and albuterol nebulizer without improvement - Went to [facility] on 04/20 for worsening symptoms and was given 10 day course of Augmentin Suspect asthmatic bronchitis with acute exacerbation and acute exacerbation of asthmaCOPD overlap syndrome - Discontinued Augmentin on admission due to low suspicion for bacterial pneumonia - Respiratory BioFire negative; mild leukocytosis likely secondary to recent prednisone course - Pulmonology consulted > Started Brovana and budesonide nebulized treatment, discontinued Breo > Added montelukast and Performomist to regimen > Recommend switching from Breo to Trelegy 200 daily on discharge - Continue prednisone 40 mg daily - Continue Mucomyst 20% inhaler and guaifenesin 1200mg BID to help expectorate phlegm - BiPAP/CPAP as needed nightly - Incentive spirometer Q4H waking hours (2) Obesity hypoventilation syndrome: Plan: Morbid obesity as a probable contributing factor to pt's bronchitis - VBG with slight increase in CO2 and slight decrease in pH - meds and breathing treatments as above - pulmonology consult ordered (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 She reports feeling slightly better toda y compared to yesterday. She notes it feels difficult to take a deep breath, but not painful to take a deep breath. She reports feeling wheezy, but denies feeling short of breath or having difficulty breathing. She notes she has had episodes like this in the past. We discussed her treatment plan. All questions were answered. No additional complaints or concerns at this time. Physical Exam Physical Exam: General: No acute distress, nondiaphoretic, well-developed, well-nourished. Skin: The skin was without rashes, erythema, edema, or bruising. Cardiac: Regular rate and rhythm without murmurs gallops or rubs. Pulm: Diminished air entry bilaterally with expiratory wheeze and rhonchi across all lung adame. No respiratory distress. 95% on 1 L via NC. Abdominal: Soft, nontender, nondistended. Bowel sounds present. Neuro: A&O x3. No focal neurological deficits. Results & Data Results & Data Vital Signs (Past 12 Hours) Vital Signs Temp Pulse Pulse Resp BP Pulse Ox O2 Del Method 04/24/24 14:58 85 19 95 Nasal Cannula 04/24/24 14:16 98.1 F 66 16 144/70 H 97 Nasal Cannula 04/24/24 10:51 83 18 95 Room Air 04/24/24 08:38 68 138/70 98 Room Air 04/24/24 07:25 Room Air 04/24/24 07:13 97.5 F L 56 L 18 150/81 H 100 Nebulizer 04/24/24 07:00 60 18 95 Room Air O2 Flow Rate 04/24/24 14:58 1 04/24/24 14:16 2 04/24/24 10:51 04/24/24 08:38 04/24/24 07:25 04/24/24 07:13 04/24/24 07:00 Laboratory Results Reviewed VBG Reviewed CMP Reviewed UA PG Care Time/CCT Total # of Minutes Spent Total Time Spent with Patient: Total time spent is greater than 50% in coordination of care (as documented) at patient's floor/unit and/or counseling patient: Coding Level of Care Code 68040 SUB INP/OBS CARE 2/35MIN Diagnoses Asthmatic bronchitis with acute exacerbation J45.901 Obesity hypoventilation syndrome E66.2 Diabetes mellitus type 2 with complications E11.8
[2024-04-24] MEDS: FORMOTEROL 20 MCG/2 ML VIAL INH SCH (19:24)
[2024-04-24] MEDS: BUDESONIDE 0.5 MG/2 ML VIAL (PULMICORT) NEB SCH (19:24)
[2024-04-24] MEDS: DOXEPIN HCL 3 MG TAB PO SCH (21:10)
[2024-04-24] MEDS: MONTELUKAST SODIUM 10 MG TABLET PO SCH (21:11)
[2024-04-25] MEDS: INSULIN ASPART PER UNIT CHARGE SC SCH (02:08)
[2024-04-25] MEDS: ACETAMINOPHEN 325 MG TAB PO PRN (07:53)
[2024-04-25] MEDS: LANTUS PER UNIT CHARGE SQ SCH (08:53)
--- NOTE | 2024-04-25 10:58 | Pharmacy Report ---
Pharmacy Glycemic Short Note 2 - Date of Service April 25, 2024 - Glycemic Short BSG Results (Last 24 hours): 04/24/24 04/24/24 04/24/24 11:39 16:33 20:47 POC Glucose 246 H 144 H 140 H 04/25/24 04/25/24 02:02 07:42 POC Glucose 73 92 OUTPATIENT ANTIDIABETIC REGIMEN: * Lantus 93 units SQ BID * Humalog SSI TID with meals * per scale (0-30 units, depending on BSG) * Semaglutide 2mg SQ weekly (on ) * HbA1c: 8.5% (02/26/24) ASSESSMENT: 04/25 * Patient received 210 units of SQ insulin yesterday, of which 130 units were basal insulin. Insulin drip discontinued yesterday AM. * Fasting BSG is 92 mg/dL - still is receiving prednisone 40 mg daily. Will plan to scale back on basal insulin this AM since fasting BSG trending down. Will reduce ~30% * No change to CF/CR 04/24 * Ms Claros is a 53yo diabetic F admitted with SOB. * Pt received one dose of IV SoluMedrol last evening, which looks to have had a significant effect on her BSGs last night. BSGs brenda above 300, so pt was started on an IV insulin infusion. * BSGs improved this morning, so pt was transitioned from IV to SQ insulin mgmt. * Pt is ordered ongoing steroid therapy, currently prednisone 40mg daily. * Given patient's insulin requirements at home (>200 units per day) and likelihood of steroid-induced hyperglycemia, expect that regimen may require further tightening. * Pharmacy will continue to follow and adjust regimen as indicated. Anticipate insulin requirements will decrease as steroids taper/stop. PLAN FOR INPATIENT GLYCEMIC CONTROL: * Hold outpatient oral diabetes medications * Basal insulin * Lantus 45 units bid * Bolus insulin * NovoLog per scale ACHS or Q6hrs while NPO * Goal Range: Low 110 mg/dL - High 140 mg/dL * Correction Factor: 10 mg/dL/unit * Nutritional / Prandial insulin per carb ratio of 1 unit per 3 grams CHO consumed
--- NOTE | 2024-04-25 12:14 | Pulmonology Progress Note ---
Date of Service April 25, 2024 Assessment & Plan (1) Asthma-COPD overlap syndrome: (2) Asthmatic bronchitis with acute exacerbation: (3) Obesity: Plan Chest x-ray 04/23/2024 personally reviewed: Portable film, good inspiratory effort, bilateral costophrenic and cardiophrenic angles are clean, questionable retrocardiac opacity No other clear lung infiltrate -- Acute exacerbation of asthma-COPD overlap syndrome Used to smoke socially for approximately 15 years, quit at the age of 33 Respiratory BioFire negative for everything on 04/23/2024 Procalcitonin 0.12 Absolute eosinophil count 200 on 02/26/2024 -- Asthma On Breo 200 as an outpatient Would recommend to change to Trelegy 200 on a daily basis on discharge Add montelukast to the patient's regimen --Probable MOISES/OHS Recommend outpatient polysomnography Plan: Continue with Brovana and budesonide nebulized treatment Continue with Mucinex and flutter valve along with montelukast Mucomyst discontinued as she was not able to tolerate it Given the patient is having low-grade fever with Tmax 37.8. I will start the patient on doxycycline for 5 days Continue with prednisone Recommend to consider changing propranolol to some other medication Case was discussed with RN at bedside Please note the above document was generated using voice recognition software. It may contain grammatical, syntax or spelling errors.Any formal questions or concerns about the content, text or information contained within the body of this dictation should be directly addressed to the provider for clarification. Admission and Anticipated Discharge Date Admission Date: April 23, 2024 Subjective Patient seen and examined at bedside. No acute distress, no adverse events overnight Still complaining of wheezing and coughing. It has decreased in intensity. When she does bring up the phlegm is mostly clear, no hemoptysis Shortness of breath has improved No headache, no blurry vision Tmax 37.8 Patient was not able to tolerate Mucomyst Review of Systems 2 Review of Systems: All systems reviewed & are unremarkable except as noted in Subjective Physical Exam 2 Physical Exam: Constitutional: No acute distress HEENT: EOMI, PERRLA, facial hirsutism Respiratory system: Decreased air entry bilaterally, diffuse expiratory wheeze bilaterally, positive rhonchi, mild crackles bilateral lower lobes CVS: S1-S2 positive, no murmurs or gallops Abdomen: Soft, nontender, nondistended, positive bowel sounds x4, obese Extremities: +2 pulses bilaterally radialis/ dorsalis pedis, no cyanosis, no edema Neuro: Awake alert oriented x3 Psych: Normal mood and affect G/U: No Estrada Skin: no rashes, warm and dry Lymphatic: no cervical or axillary lymphadenopathy Results & Data Results & Data Vital Signs (Past 12 Hours) Vital Signs Temp Pulse Resp BP Pulse Ox O2 Del Method O2 Flow Rate 04/25/24 10:08 67 18 98 Nasal Cannula 2 04/25/24 08:49 37.5 C 04/25/24 07:38 37.8 C H 74 20 152/68 H 96 Nasal Cannula 2 04/25/24 07:35 Nasal Cannula 2 04/25/24 05:19 18 99 Nasal Cannula 1 Laboratory Results 04/23/24 16:15 04/24/24 08:04 PG Care Time/CCT Total # of Minutes Spent Total Time Spent with Patient: Total time spent is greater than 50% in coordination of care (as documented) at patient's floor/unit and/or counseling patient: Coding Level of Care Code 83496 SUB INP/OBS CARE 3/50MIN Diagnoses Asthma-COPD overlap syndrome J44.89 Asthmatic bronchitis with acute exacerbation J45.901 Obesity E66.9
--- NOTE | 2024-04-25 16:43 | Hospitalist Progress Note ---
Date of Service April 25, 2024 Assessment & Plan (1) Asthmatic bronchitis with acute exacerbation: Plan: Presented with worsening cough and SOB x 1.5 weeks and failure of outpatient treatment - Saw PCP on 04/17 and was given 5 day course of PO prednisone, benzonatate, and albuterol nebulizer without improvement - Went to [facility] on 04/20 for worsening symptoms and was given 10 day course of Augmentin. Discontinued Augmentin on admission due to low suspicion for bacterial pneumonia Suspect asthmatic bronchitis with acute exacerbation and acute exacerbation of asthmaCOPD overlap syndrome - Respiratory BioFire negative; mild leukocytosis likely secondary to recent prednisone course - Pulmonology consulted, appreciate recommendations provided > Recommend switching from Breo to Trelegy 200 daily on discharge > Recommended switching from propranolol to another agent -- will switch to cardioselective beta fredy, Metoprolol. Will start on metoprolol tartrate 75 mg BID; if improvement/tolerance, can switch to succinate on discharge - Started Doxycycline x 5 days given low-grade fever overnight, last day 04/30 - Continue Brovana and budesonide nebulized treatment, discontinued Breo - Continue prednisone 40 mg daily - Continue flutter valve, montelukast, and guaifenesin 1200mg BID to help expectorate phlegm; Mucomyst 20% inhaler discontinue due to poor tolerance - BiPAP/CPAP as needed nightly - Incentive spirometer Q4H waking hours (2) Obesity hypoventilation syndrome: Plan: Morbid obesity as a probable contributing factor to pt's bronchitis - VBG with slight increase in CO2 and slight decrease in pH - meds and breathing treatments as above - pulmonology consult ordered - Recommend outpatient sleep study (3) Diabetes mellitus type 2 with complications: Plan: Severely elevated blood sugar on admission, BSG high of 399 - Holding home Ozempic - ACHS glucose checks - Pharmacy glycemic consulted given current steroid course Plan Updated at bedside Discontinued propranolol and started metoprolol VTE PPx: Lovenox CODE STATUS: Full code Admission and Anticipated Discharge Date Admission Date: April 23, 2024 Subjective Patient seen and evaluated at bedside with her present. She continues to endorse wheezing and non-productive cough. She is off of supplemental O2 at this time and saturating well. She denies shortness of breath or difficulty breathing. She notes her breathing feels better compared to yesterday. She reports she did not like the one nebulizer treatment yesterday as it "tasted like sulfur and didn't make much of a difference." She denied any fever or chills, though did have a low-grade fever overnight. Discussed treatment plan. No additional complaints or concerns at this time. Physical Exam Physical Exam: General: No acute distress, nondiaphoretic, well-developed, well-nourished. Skin: The skin was without rashes, erythema, edema, or bruising. Cardiac: Regular rate and rhythm without murmurs gallops or rubs. Pulm: Diminished air entry bilaterally with course rhonchi across all lung adame. Expiratory wheeze remains but improved. No respiratory distress. 94% on room air. Abdominal: Soft, nontender, nondistended. Bowel sounds present. Neuro: A&O x3. No focal neurological deficits. Results & Data Results & Data Vital Signs (Past 12 Hours) Vital Signs Temp Pulse Resp BP Pulse Ox O2 Del Method O2 Flow Rate 04/25/24 15:23 98.1 F 55 L 18 169/71 H 94 Room Air 04/25/24 15:09 73 18 94 Room Air 04/25/24 10:08 67 18 98 Nasal Cannula 2 04/25/24 08:49 99.5 F 04/25/24 07:38 100.0 F H 74 20 152/68 H 96 Nasal Cannula 2 04/25/24 07:35 Nasal Cannula 2 04/25/24 05:19 18 99 Nasal Cannula 1 PG Care Time/CCT Total # of Minutes Spent Total Time Spent with Patient: Total time spent is greater than 50% in coordination of care (as documented) at patient's floor/unit and/or counseling patient: Coding Level of Care Code 09144 SUB INP/OBS CARE 3/50MIN Diagnoses Asthmatic bronchitis with acute exacerbation J45.901 Obesity hypoventilation syndrome E66.2 Diabetes mellitus type 2 with complications E11.8
[2024-04-25] MEDS: METOPROLOL TARTRATE 25 MG TAB PO SCH (20:49)
[2024-04-25] MEDS: DOXYCYCLINE HYCLATE 100 MG CAP PO SCH (22:16)
[2024-04-26] MEDS: INSULIN ASPART PER UNIT CHARGE SC SCH (02:16)
[2024-04-26 06:50] LABS: Hematocrit (blood only) 38.3 % (37.0-47.0); Hemoglobin 11.8 g/dl (12.0-16.0); Mean Corpuscular Hemoglobin 25.3 pg (25.0-34.0); Mean Corpuscular Hgb Conc 30.8 g/dL (32.0-36.0); Platelet Count 281 K/uL (130-400); RDW Coefficient of Variation 15.1 % (11.5-14.5); RDW Standard Deviation 43.6 fL (36.4-46.3); Red Blood Count 4.67 M/uL (4.20-5.40); White Blood Count 7.69 K/ul (4.8-10.8)
--- NOTE | 2024-04-26 08:13 | Hospitalist Progress Note ---
Date of Service April 26, 2024 Assessment & Plan (1) Asthmatic bronchitis with acute exacerbation: Plan: Presented with worsening cough and SOB x 1.5 weeks and failure of outpatient treatment - Saw PCP on 04/17 and was given 5 day course of PO prednisone, benzonatate, and albuterol nebulizer without improvement - Went to [facility] on 04/20 for worsening symptoms and was given 10 day course of Augmentin. Discontinued Augmentin on admission due to low suspicion for bacterial pneumonia Suspect asthmatic bronchitis with acute exacerbation and acute exacerbation of asthmaCOPD overlap syndrome - Respiratory BioFire negative; mild leukocytosis likely secondary to recent prednisone course - Pulmonology consulted, appreciate recommendations provided > Recommend switching from Breo to Trelegy 200 daily on discharge > Recommended switching from propranolol to another agent -- will switch to cardioselective beta fredy, Metoprolol. Will start on metoprolol tartrate 75 mg BID; if improvement/tolerance, can switch to succinate on discharge - Started Doxycycline x 5 days given low-grade fever overnight, last day 04/30 - Continue Brovana and budesonide nebulized treatment, discontinued Breo - Continue prednisone 40 mg daily - Continue flutter valve, montelukast, and guaifenesin 1200mg BID to help expectorate phlegm; Mucomyst 20% inhaler discontinue due to poor tolerance - BiPAP/CPAP as needed nightly - Incentive spirometer Q4H waking hours (2) Obesity hypoventilation syndrome: Plan: Morbid obesity as a probable contributing factor to pt's bronchitis - VBG with slight increase in CO2 and slight decrease in pH - meds and breathing treatments as above - pulmonology consult ordered - Recommend outpatient sleep study (3) Diabetes mellitus type 2 with complications: Plan: Severely elevated blood sugar on admission, BSG high of 399 - Holding home Ozempic - ACHS glucose checks - Pharmacy glycemic consulted given current steroid course Plan Updated at bedside Discontinued propranolol and started metoprolol VTE PPx: Lovenox CODE STATUS: Full code Admission and Anticipated Discharge Date Admission Date: April 23, 2024 Subjective pt feels about 50% back to baseline cough and wheezes Physical Exam Physical Exam: coarse breath sounds throughout, scant but diffuse wheezing Results & Data Results & Data Vital Signs (Past 12 Hours) Vital Signs Temp Pulse Resp BP BP Pulse Ox O2 Del Method 04/26/24 07:19 69 17 96 Room Air 04/26/24 07:10 98.2 F 63 20 203/83 H 94 Room Air 04/26/24 04:03 65 17 96 Room Air 04/26/24 00:24 67 18 95 Room Air 04/25/24 22:20 67 171/74 H 04/25/24 20:50 Room Air 04/25/24 20:20 98.1 F 67 17 185/75 H 95 Room Air FiO2 04/26/24 07:19 21 04/26/24 07:10 04/26/24 04:03 04/26/24 00:24 04/25/24 22:20 04/25/24 20:50 04/25/24 20:20 Laboratory Results review cbc review chemistry PG Care Time/CCT Total # of Minutes Spent Total Time Spent with Patient: Total time spent is greater than 50% in coordination of care (as documented) at patient's floor/unit and/or counseling patient: Coding Level of Care Code 43979 SUB INP/OBS CARE 3/50MIN Diagnoses Asthmatic bronchitis with acute exacerbation J45.901 Obesity hypoventilation syndrome E66.2 Diabetes mellitus type 2 with complications E11.8
[2024-04-26] MEDS: LANTUS PER UNIT CHARGE SQ SCH (08:45)
--- NOTE | 2024-04-26 08:50 | Pulmonology Progress Note ---
Date of Service April 26, 2024 Assessment & Plan (1) Asthma-COPD overlap syndrome: (2) Asthmatic bronchitis with acute exacerbation: (3) Obesity: Plan Chest x-ray 04/23/2024 personally reviewed: Portable film, good inspiratory effort, bilateral costophrenic and cardiophrenic angles are clean, questionable retrocardiac opacity No other clear lung infiltrate -- Acute exacerbation of asthma-COPD overlap syndrome Used to smoke socially for approximately 15 years, quit at the age of 33 Respiratory BioFire negative for everything on 04/23/2024 Procalcitonin 0.12 Absolute eosinophil count 200 on 02/26/2024 -- Asthma On Breo 200 as an outpatient Would recommend to change to Trelegy 200 on a daily basis on discharge Add montelukast to the patient's regimen --Probable MOISES/OHS Recommend outpatient polysomnography Plan: Continue with Brovana and budesonide nebulized treatment Continue with Mucinex and flutter valve along with montelukast Mucomyst discontinued as she was not able to tolerate it Complete the course of doxycycline for total of 5 days Case was discussed with RN at bedside Please note the above document was generated using voice recognition software. It may contain grammatical, syntax or spelling errors.Any formal questions or concerns about the content, text or information contained within the body of this dictation should be directly addressed to the provider for clarification. Admission and Anticipated Discharge Date Admission Date: April 23, 2024 Subjective Patient seen and examined at bedside. No acute distress, no adverse events overnight She stated that she is feeling better compared to yesterday Still complaining of cough, not much coming out now. No hemoptysis No chest pain Denies any headache or blurry vision Fair appetite, no nausea vomiting Review of Systems 2 Review of Systems: All systems reviewed & are unremarkable except as noted in Subjective Physical Exam 2 Physical Exam: Constitutional: No acute distress HEENT: EOMI, PERRLA, facial hirsutism Respiratory system: Decreased air entry bilaterally, minimal crackles bilateral lower lobes, no rhonchi, positive expiratory wheeze CVS: S1-S2 positive, no murmurs or gallops Abdomen: Soft, nontender, nondistended, positive bowel sounds x4, obese Extremities: +2 pulses bilaterally radialis/ dorsalis pedis, no cyanosis, no edema Neuro: Awake alert oriented x3 Psych: Normal mood and affect G/U: No Estrada Skin: no rashes, warm and dry Lymphatic: no cervical or axillary lymphadenopathy Results & Data Results & Data Vital Signs (Past 12 Hours) Vital Signs Temp Pulse Resp BP Pulse Ox O2 Del Method FiO2 04/26/24 07:19 69 17 96 Room Air 21 04/26/24 07:10 36.8 C 63 20 203/83 H 94 Room Air 04/26/24 04:03 65 17 96 Room Air 04/26/24 00:24 67 18 95 Room Air 04/25/24 22:20 67 171/74 H 04/25/24 20:50 Room Air Laboratory Results 04/26/24 06:12 04/24/24 08:04 PG Care Time/CCT Total # of Minutes Spent Total Time Spent with Patient: Total time spent is greater than 50% in coordination of care (as documented) at patient's floor/unit and/or counseling patient: Coding Level of Care Code 74569 SUB INP/OBS CARE 2/35MIN Diagnoses Asthma-COPD overlap syndrome J44.89 Asthmatic bronchitis with acute exacerbation J45.901 Obesity E66.9
[2024-04-26] MEDS ORDERED: METOPROLOL TARTRATE 25 MG TAB PO SCH (09:00)
[2024-04-26] MEDS: CARBOHYDRATES FOR HYPOGLYCEMIA PO PRN (11:52)
--- NOTE | 2024-04-26 14:11 | Pharmacy Report ---
Pharmacy Glycemic Short Note 2 - Date of Service April 26, 2024 - Glycemic Short BSG Results (Last 24 hours): 04/25/24 04/25/24 04/25/24 16:57 20:23 20:25 POC Glucose 255 H 321 H* 230 H 04/25/24 04/26/24 04/26/24 20:27 02:01 02:02 POC Glucose 221 H 299 H 285 H 04/26/24 04/26/24 04/26/24 07:34 11:49 11:50 POC Glucose 173 H 57 L* 64 L* 04/26/24 12:10 POC Glucose 104 H OUTPATIENT ANTIDIABETIC REGIMEN: * Lantus 93 units SQ BID * Humalog SSI TID with meals * per scale (0-30 units, depending on BSG) * Semaglutide 2mg SQ weekly (on ) * HbA1c: 8.5% (02/26/24) ASSESSMENT: 04/26 * Patient received total total of 147 units of insulin yesterday, of which 90 units were basal insulin * Fasting BSG 173 mg/dL - however did require an additional 10 units of novolog overnight as correctional therefore will increase to Lantus 50 units bid * Lunch BSG trending down, tx per hypoglycemic protocol with orange juice, patient asymptomatic - loosened CR with lunch time check 04/25 * Patient received 210 units of SQ insulin yesterday, of which 130 units were basal insulin. Insulin drip discontinued yesterday AM. * Fasting BSG is 92 mg/dL - still is receiving prednisone 40 mg daily. Will plan to scale back on basal insulin this AM since fasting BSG trending down. Will reduce ~30% * No change to CF/CR 04/24 * Ms Claros is a 53yo diabetic F admitted with SOB. * Pt received one dose of IV SoluMedrol last evening, which looks to have had a significant effect on her BSGs last night. BSGs brenda above 300, so pt was started on an IV insulin infusion. * BSGs improved this morning, so pt was transitioned from IV to SQ insulin mgmt. * Pt is ordered ongoing steroid therapy, currently prednisone 40mg daily. * Given patient's insulin requirements at home (>200 units per day) and likelihood of steroid-induced hyperglycemia, expect that regimen may require further tightening. * Pharmacy will continue to follow and adjust regimen as indicated. Anticipate insulin requirements will decrease as steroids taper/stop. PLAN FOR INPATIENT GLYCEMIC CONTROL: * Hold outpatient oral diabetes medications * Basal insulin * Lantus 50 units bid * Bolus insulin * NovoLog per scale ACHS or Q6hrs while NPO * Goal Range: Low 110 mg/dL - High 140 mg/dL * Correction Factor: 15 mg/dL/unit * Nutritional / Prandial insulin per carb ratio of 1 unit per 6 grams CHO consumed
[2024-04-26] MEDS: SPIRONOLACTONE 25 MG TAB PO SCH (21:14)
[2024-04-27 06:06] LABS: Hematocrit (blood only) 37.9 % (37.0-47.0); Hemoglobin 11.9 g/dl (12.0-16.0); Mean Corpuscular Hemoglobin 25.2 pg (25.0-34.0); Mean Corpuscular Hgb Conc 31.4 g/dL (32.0-36.0); Mean Corpuscular Volume 80.1 fL (80.0-100.0); Mean Platelet Volume 9.8 fL (9.4-12.4); Platelet Count 270 K/uL (130-400); RDW Coefficient of Variation 14.6 % (11.5-14.5); RDW Standard Deviation 42.3 fL (36.4-46.3); Red Blood Count 4.73 M/uL (4.20-5.40); White Blood Count 9.25 K/ul (4.8-10.8)
[2024-04-27 06:25] LABS: BUN Creatinine Ratio 32.9 (10-20); Calcium 9.1 mg/dl (8.6-10.3); Creatinine Clr Calc Pharmacy 119.1 ml/min; Potassium 4.4 mmol/L (3.5-5.1)
[2024-04-27] MEDS: LANTUS PER UNIT CHARGE SQ SCH ×2 (08:18→20:43)
--- NOTE | 2024-04-27 08:44 | Pulmonology Progress Note ---
Date of Service April 27, 2024 Assessment & Plan (1) Asthma-COPD overlap syndrome: (2) Asthmatic bronchitis with acute exacerbation: (3) Obesity: Plan Chest x-ray 04/23/2024 personally reviewed: Portable film, good inspiratory effort, bilateral costophrenic and cardiophrenic angles are clean, questionable retrocardiac opacity No other clear lung infiltrate -- Acute exacerbation of asthma-COPD overlap syndrome Used to smoke socially for approximately 15 years, quit at the age of 33 Respiratory BioFire negative for everything on 04/23/2024 Procalcitonin 0.12 Absolute eosinophil count 200 on 02/26/2024 -- Asthma On Breo 200 as an outpatient Would recommend to change to Trelegy 200 on a daily basis on discharge Continue with montelukast --Probable MOISES/OHS Recommend outpatient polysomnography Plan: Continue with Brovana and budesonide nebulized treatment Continue with Mucinex and flutter valve along with montelukast Would recommend to change to Trelegy 200 on a daily basis on discharge Continue with montelukast Complete the course of doxycycline for total of 5 days Case was discussed with RT at bedside No further recommendation from pulmonary perspective, will sign off Please call directly with any questions Please note the above document was generated using voice recognition software. It may contain grammatical, syntax or spelling errors.Any formal questions or concerns about the content, text or information contained within the body of this dictation should be directly addressed to the provider for clarification. Admission and Anticipated Discharge Date Admission Date: April 23, 2024 Subjective Patient seen and examined at bedside. No acute distress, no adverse events overnight Stated that she is feeling much better compared to yesterday Denied any headache, no nausea, no vomiting Has been afebrile Coughing up clear phlegm Fair appetite Review of Systems 2 Review of Systems: All systems reviewed & are unremarkable except as noted in Subjective Physical Exam 2 Physical Exam: Constitutional: No acute distress HEENT: EOMI, PERRLA, facial hirsutism Respiratory system: Decreased air entry bilaterally, no crackles, no rhonchi, no wheeze CVS: S1-S2 positive, no murmurs or gallops Abdomen: Soft, nontender, nondistended, positive bowel sounds x4, obese Extremities: +2 pulses bilaterally radialis/ dorsalis pedis, no cyanosis, no edema Neuro: Awake alert oriented x3 Psych: Normal mood and affect G/U: No Estrada Skin: no rashes, warm and dry Lymphatic: no cervical or axillary lymphadenopathy Results & Data Results & Data Vital Signs (Past 12 Hours) Vital Signs Temp Pulse Resp BP Pulse Ox O2 Del Method 04/27/24 07:44 36.8 C 54 L 19 156/85 H 99 Room Air 04/27/24 07:21 60 16 96 Room Air 04/26/24 22:56 65 17 96 Room Air Laboratory Results 04/27/24 05:44 04/27/24 05:44 PG Care Time/CCT Total # of Minutes Spent Total Time Spent with Patient: Total time spent is greater than 50% in coordination of care (as documented) at patient's floor/unit and/or counseling patient: Coding Level of Care Code 90569 SUB INP/OBS CARE 2/35MIN Diagnoses Asthma-COPD overlap syndrome J44.89 Asthmatic bronchitis with acute exacerbation J45.901 Obesity E66.9
[2024-04-27] MEDS ORDERED: ALBUT/IPRATROP 3MG/0.5MG NEB 3 ML VIAL NEB PRN (10:45)
--- NOTE | 2024-04-27 15:08 | Pharmacy Report ---
Pharmacy Glycemic Short Note 2 - Date of Service April 27, 2024 - Glycemic Short BSG Results (Last 24 hours): 04/26/24 04/26/24 04/27/24 16:53 20:33 05:44 Glucose 96 POC Glucose 200 H 294 H 04/27/24 04/27/24 04/27/24 07:32 07:33 07:45 Glucose POC Glucose 66 L* 66 L* 98 04/27/24 11:44 Glucose POC Glucose 185 H OUTPATIENT ANTIDIABETIC REGIMEN: * Lantus 93 units SQ BID * Humalog SSI TID with meals * per scale (0-30 units, depending on BSG) * Semaglutide 2mg SQ weekly (on ) * HbA1c: 8.5% (02/26/24) ASSESSMENT: 04/27 * Patient received total of 162 units of insulin yesterday, of which 100 units were basal insulin * Fasting BSG 66 mg/dL - will scale back on basal ~15% today * Lunch BSG tends to trend down, will have looser parameter at breakfast and tighter parameter for novolog starting at lunch 04/26 * Patient received total total of 147 units of insulin yesterday, of which 90 units were basal insulin * Fasting BSG 173 mg/dL - however did require an additional 10 units of novolog overnight as correctional therefore will increase to Lantus 50 units bid * Lunch BSG trending down, tx per hypoglycemic protocol with orange juice, p atient asymptomatic - loosened CR with lunch time check 04/25 * Patient received 210 units of SQ insulin yesterday, of which 130 units were basal insulin. Insulin drip discontinued yesterday AM. * Fasting BSG is 92 mg/dL - still is receiving prednisone 40 mg daily. Will plan to scale back on basal insulin this AM since fasting BSG trending down. Will reduce ~30% * No change to CF/CR 04/24 * Ms Claros is a 53yo diabetic F admitted with SOB. * Pt received one dose of IV SoluMedrol last evening, which looks to have had a significant effect on her BSGs last night. BSGs brenda above 300, so pt was started on an IV insulin infusion. * BSGs improved this morning, so pt was transitioned from IV to SQ insulin mgmt. * Pt is ordered ongoing steroid therapy, currently prednisone 40mg daily. * Given patient's insulin requirements at home (>200 units per day) and likelihood of steroid-induced hyperglycemia, expect that regimen may require further tightening. * Pharmacy will continue to follow and adjust regimen as indicated. Anticipate insulin requirements will decrease as steroids taper/stop. PLAN FOR INPATIENT GLYCEMIC CONTROL: * Hold outpatient oral diabetes medications * Basal insulin * Lantus 45 units bid * Bolus insulin * NovoLog per scale ACHS or Q6hrs while NPO * Goal Range: Low 110 mg/dL - High 140 mg/dL * Correction Factor: 20 mg/dL/unit * Nutritional / Prandial insulin per carb ratio of 1 unit per 6 grams CHO consumed
--- NOTE | 2024-04-27 15:34 | Hospitalist Progress Note ---
Date of Service April 27, 2024 Assessment & Plan (1) Asthmatic bronchitis with acute exacerbation: Plan: Presented with worsening cough and SOB x 1.5 weeks and failure of outpatient treatment Failed outpatient prednisone and Augmentin no pneumonia was ever seen Suspect asthmatic bronchitis with acute exacerbation and acute exacerbation of asthmaCOPD overlap syndrome - Respiratory BioFire negative; mild leukocytosis likely secondary to recent prednisone course - Pulmonology consulted, appreciate recommendations provided > Recommend switching from Breo to Trelegy 200 daily on discharge > Recommended switching from propranolol to another agent -- will switch to cardioselective beta fredy, Metoprolol. Has tolerated so far -5 days of doxycycline at discharge - Continue Brovana and budesonide nebulized treatment, discontinued Breo - Continue prednisone 40 mg daily with tapering dose after discharge - Continue flutter valve, montelukast, and guaifenesin 1200mg BID to help expectorate phlegm; - BiPAP/CPAP as needed nightly - (2) Obesity hypoventilation syndrome: Plan: Morbid obesity as a probable contributing factor to pt's bronchitis - VBG with slight increase in CO2 and slight decrease in pH - meds and breathing treatments as above - pulmonology consult ordered - Recommend outpatient sleep study (3) Diabetes mellitus type 2 with complications: Plan: Severely elevated blood sugar on admission, BSG high of 399 - Holding home Ozempic - ACHS glucose checks - Pharmacy glycemic consulted given current steroid course Plan Discontinued propranolol and started metoprolol VTE PPx: Lovenox CODE STATUS: Full code Admission and Anticipated Discharge Date Admission Date: April 23, 2024 Subjective Patient feels improved and feels like she will need 1 more day. Pulmonary medicine is stressed the importance of changing to Trelegy at time of discharge. Completing course of doxycycline for 5 days. Physical Exam Physical Exam: coarse breath sounds throughout, much less wheezing but still scant wheezing throughout lung adame Results & Data Results & Data Vital Signs (Past 12 Hours) Vital Signs Temp Pulse Resp BP Pulse Ox O2 Del Method 04/27/24 14:51 98.2 F 60 19 158/74 H 96 Room Air 04/27/24 10:43 61 18 98 Room Air 04/27/24 07:44 98.2 F 54 L 19 156/85 H 99 Room Air 04/27/24 07:42 Room Air 04/27/24 07:21 60 16 96 Room Air Laboratory Results Reviewed CBC reviewed chemistry PG Care Time/CCT Total # of Minutes Spent Total Time Spent with Patient: Total time spent is greater than 50% in coordination of care (as documented) at patient's floor/unit and/or counseling patient: Coding Level of Care Code 35323 SUB INP/OBS CARE 2/35MIN Diagnoses Asthmatic bronchitis with acute exacerbation J45.901 Obesity hypoventilation syndrome E66.2 Diabetes mellitus type 2 with complications E11.8
[2024-04-28 06:20] LABS: BUN Creatinine Ratio 32.1 (10-20); Calcium 8.8 mg/dl (8.6-10.3); Creatinine Clr Calc Pharmacy 107.8 ml/min; Potassium 4.6 mmol/L (3.5-5.1)
[2024-04-28 07:14] VITALS: RESP 16
[2024-04-28] MEDS: LANTUS PER UNIT CHARGE SQ SCH (08:33)
[2024-04-28] MEDS: INSULIN ASPART PER UNIT CHARGE SC SCH ×2 (08:33→12:02)
[2024-04-28 13:54] VITALS: PULSE 62; TEMP 97.7; O2SAT 96
--- NOTE | 2024-04-28 14:57 | Pharmacy Report ---
Pharmacy Glycemic Short Note 2 - Date of Service April 28, 2024 - Glycemic Short BSG Results (Last 24 hours): 04/27/24 04/27/24 04/27/24 16:48 16:50 20:09 Glucose POC Glucose 333 H* 290 H 276 H 04/28/24 04/28/24 04/28/24 05:44 07:34 11:21 Glucose 63 L POC Glucose 95 108 H OUTPATIENT ANTIDIABETIC REGIMEN: * Lantus 93 units SQ BID * Humalog SSI TID with meals * per scale (0-30 units, depending on BSG) * Semaglutide 2mg SQ weekly (on ) * HbA1c: 8.5% (02/26/24) ASSESSMENT: 04/28 * A total of 143 units of insulin was received yesterday (85 units were basal and 58 units were bolus) * Fasting BSG was 95mg/dL this morning, and lunch BSG only brenda to 108 so will further decrease basal by ~20% today. * Further loosened parameters for bolus insulin just at breakfast. 04/27 * Patient received total of 162 units of insulin yesterday, of which 100 units were basal insulin * Fasting BSG 66 mg/dL - will scale back on basal ~15% today * Lunch BSG tends to trend down, will have looser parameter at breakfast and tighter parameter for novolog starting at lunch 04/26 * Patient received total total of 147 units of insulin yesterday, of which 90 units were basal insulin * Fasting BSG 173 mg/dL - however did require an additional 10 units of novolog overnight as correctional therefore will increase to Lantus 50 units bid * Lunch BSG trending down, tx per hypoglycemic protocol with orange juice, patient asymptomatic - loosened CR with lunch time check 04/25 * Patient received 210 units of SQ insulin yesterday, of which 130 units were basal insulin. Insulin drip discontinued yesterday AM. * Fasting BSG is 92 mg/dL - still is receiving prednisone 40 mg daily. Will plan to scale back on basal insulin this AM since fasting BSG trending down. Will reduce ~30% * No change to CF/CR 04/24 * Ms Claros is a 53yo diabetic F admitted with SOB. * Pt received one dose of IV SoluMedrol last evening, which looks to have had a significant effect on her BSGs last night. BSGs brenda above 300, so pt was started on an IV insulin infusion. * BSGs improved this morning, so pt was transitioned from IV to SQ insulin mgmt. * Pt is ordered ongoing steroid therapy, currently prednisone 40mg daily. * Given patient's insulin requirements at home (>200 units per day) and likelihood of steroid-induced hyperglycemia, expect that regimen may require further tightening. * Pharmacy will continue to follow and adjust regimen as indicated. Anticipate insulin requirements will decrease as steroids taper/stop. PLAN FOR INPATIENT GLYCEMIC CONTROL: * Hold outpatient oral diabetes medications * Basal insulin * Lantus 45 units this morning and 25 units at HS today * Bolus insulin * NovoLog per scale ACHS or Q6hrs while NPO * Goal Range: Low 110 mg/dL - High 140 mg/dL * Correction Factor: 20 mg/dL/unit * Nutritional / Prandial insulin per carb ratio of 1 unit per 8 grams CHO consumed for breakfast and 1 unit per 6 grams of CHO consumed for lunch, supper, and at bedtime.
[2024-04-28 16:01] VITALS: BP 185/75
[2024-04-28] MEDS ORDERED: LANTUS PER UNIT CHARGE SQ SCH (21:00)
--- NOTE | 2024-04-29 08:06 | Discharge Summary ---
Discharge Summary Date of Service April 28, 2024 Principal Dx & Hospital Course #1 = Principal Diagnosis (1) Asthmatic bronchitis with acute exacerbation: Presented with worsening cough and SOB x 1.5 weeks and failure of outpatient treatment Failed outpatient prednisone and Augmentin no pneumonia was ever seen Suspect asthmatic bronchitis with acute exacerbation and acute exacerbation of asthmaCOPD overlap syndrome - Respiratory BioFire negative; mild leukocytosis likely secondary to recent prednisone course - Pulmonology consulted, appreciate recommendations provided > Recommend switching from Breo to Trelegy 200 daily on discharge > Recommended switching from propranolol to another agent -- will switch to cardioselective beta fredy, Metoprolol. Has tolerated so far -5 days of doxycycline at discharge - Continue Brovana and budesonide nebulized treatment, discontinued Breo - Continue prednisone 40 mg daily with tapering dose after discharge - Continue flutter valve, montelukast, and guaifenesin 1200mg BID to help expectorate phlegm; - BiPAP/CPAP as needed nightly - (2) Obesity hypoventilation syndrome: Morbid obesity as a probable contributing factor to pt's bronchitis - VBG with slight increase in CO2 and slight decrease in pH - meds and breathing treatments as above - pulmonology consult ordered - Recommend outpatient sleep study (3) Diabetes mellitus type 2 with complications: Severely elevated blood sugar on admission, BSG high of 399 - Holding home Ozempic - ACHS glucose checks - Pharmacy glycemic consulted given current steroid course Plan Discontinued propranolol and started metoprolol VTE PPx: Lovenox CODE STATUS: Full code Admission HPI Per Admitting Provider Shanell is a 53yo female with PMHx bronchitis, asthma, morbid obesity, DM2 with neuropathy and retinopathy on insulin presenting to the ED the a week and a half of worsening cough and SOB. Started with upper respiratory symptoms a week and a half ago, went to her PCP on 04/17 and they sent her home with a 5 day course of oral prednisone and benzonatate which she says didn't help her symptoms much. PCP also order her an albuterol nebulizer, which she feels isn't helping because she can't take deep enough breaths. Endorses that for the past 4 nights she has had to sleep in a recliner chair with back elevated, as she says it is hard for her to breathe when lying flat, which she notes is not typical for her. Has been taking all of her home asthma medications but denies significant relief. Went to [place] [facility] on 04/20 for worsening symptoms, states they did not do a cxr but just discharged her with a 10 day course of Augmentin 875-125mg BID. Currently on day 4 and denies any improvement of cough or SOB, so she came to [facility] ER. Denies any fever, body aches, chills, sweats, chest pain, hemoptysis, dizziness, lightheadedness, headache, vision changes, abdominal pain. Denies any recent travel or exposure to any sick or symptomatic people. Currently lives at home with , 2 cats and a dog. Denies anything new inside home within the last few months or significant environmental exposure. Discharge Plan Discharge Items Patient Disposition: Home - Self-Care Reason For Visit: ONGOING COUGH, SOB Discharge Diagnosis: cough Activity: Resume your previous activity Non-emergency contact: Primary Care Provider Call non-emergency contact if: you have any medication questions Follow-up/Referrals: Nandini Isabel DO [Primary Care Provider] - 05/06/24 9:20 am Diet: Carb Consistent or DM2 and Heart Healthy Addtl Attending Provider Instructions: Recommend close followup with PCP in 1-2 weeks. Replaced Breo with Trelergy. You will be on a prednisone taper starting tomorrow. You will complete your antibiotics: first dose will be tonight. We replaced your propranolol to metoprolol. We added singulair to help with your breathing and also added spironlactone which is a water pill that also helps with blood pressure. Pending Studies at Discharge: No Stand-Alone Forms: My [facility] [place], Smoking Cessation Medications and DC Order Prescriptions: New Trelegy Ellipta 200-62.5-25 mcg blister with device 1 inh inhalation DAILY Qty: 28 0RF metoprolol tartrate 75 mg tablet 75 mg PO BID Qty: 60 0RF doxycycline hyclate 100 mg Capsule 100 mg PO BID Qty: 4 0RF spironolactone 25 mg Tablet 25 mg PO QPM Qty: 30 0RF guaifenesin [Mucinex] 600 mg Tablet Extended Release 12hr 1,200 mg PO Q12 Qty: 14 0RF montelukast 10 mg Tablet 10 mg PO HS Qty: 30 0RF prednisone 10 mg tablet See Rx Instructions .ROUTE .COMPLEX Qty: 20 0RF Rx Instructions: By mouth, once a day Take 4 tablets once daily for 2 days, 3 tablets for 2 days 2 tablets for 2 days 1 tablet for 2 days. Continued (DME) blood-glucose meter [FreeStyle Lite Meter] Kit See Rx Instructions .Route Qty: 1 0RF Rx Instructions: As directed test 6 x day dx E11.9 (DME) Comfort Touch Ult Thin Lancets 31 gauge misc See Rx Instructions .Route Qty: 100 3RF Rx Instructions: As directed (DME) FreeStyle Lite Strips Strip See Rx Instructions .Route Qty: 540 3RF Rx Instructions: Test 6 times daily albuterol sulfate 90 mcg/actuation HFA aerosol inhaler 2 puff INHALATION Q4H PRN (Reason: Shortness Of Breath) Qty: 8.5 1RF insulin lispro [Humalog KwikPen Insulin] 100 unit/mL insulin pen See Rx Instructions SUBCUT TIDM Qty: 45 1RF Rx Instructions: subcutaneously three times daily with meals; SLIDING SCALE <100 none 101- 150 take 5 U 151- 200 take 10 U 201- 250 take 15U 251- 300 take 20U 301-350 take 25U 351-400 take 30U >400 call betamethasone dipropionate 0.05 % cream 1 applic topical BID PRN (Reason: skin irritation) Qty: 45 0RF Ozempic 2 mg/dose (8 mg/3 mL) pen injector 2 mg subcut .weekly 90 Days Qty: 9 3RF Rx Instructions: sucralfate [Carafate] 1 gram tablet 1 g PO .COMPLEX Qty: 360 2RF Rx Instructions: 1 g orally take 1 tablet by mouth before meals and at bedtime; tramadol 50 mg tablet 50 mg PO DAILY PRN (Reason: Pain) Qty: 30 0RF pravastatin 40 mg tablet 40 mg PO QAM Qty: 90 3RF tizanidine 4 mg tablet 4 mg PO Q8H PRN (Reason: muscle spasticity) Qty: 60 3RF (DME) compressor, for nebulizer Device See Rx Instructions .Route Qty: 1 0RF Rx Instructions: Every 6 hours as directed as needed albuterol sulfate 1.25 mg/3 mL solution for nebulization 1.25 mg inhalation Q6H PRN (Reason: bronchospasm) Qty: 75 1RF (DME) pen needle, diabetic [BD Ultra-Fine Mini Pen Needle] 31 gauge x 3/16" needle See Rx Instructions .Route Rx Instructions: As directed insulin glargine [Lantus Solostar U-100 Insulin] 100 unit/mL (3 mL) insulin pen 93 unit subcut BID 90 Days Qty: 167.4 3RF benzonatate 200 mg capsule 200 mg PO TID PRN (Reason: cough) Qty: 60 1RF clobetasol 0.05 % cream 1 applic topical BID PRN (Reason: rash) Qty: 60 0RF aspirin 81 mg Tablet,Delayed Release (Dr/Ec) 81 mg PO QAM fluoxetine [Prozac] 40 mg capsule 80 mg PO QAM levothyroxine 175 mcg tablet 175 mcg PO QAM primidone 50 mg tablet 100 mg PO HS famotidine [Pepcid] 40 mg tablet 40 mg PO QAM amlodipine [Norvasc] 10 mg tablet 10 mg PO QAM pantoprazole [Protonix] 40 mg tablet,delayed release (DR/EC) 40 mg PO QAM losartan [Cozaar] 100 mg tablet 100 mg PO QAM doxepin [Silenor] 6 mg tablet 6 mg PO HS Discontinued amoxicillin-pot clavulanate 875-125 mg tablet 1 tab PO BID propranolol 120 mg Capsule,Extended Release 24hr 120 mg PO QAM Patient Comments: "Its for essential tremors" fluticasone furoate-vilanterol [Breo Ellipta] 200-25 mcg/dose blister with device 1 inh inhalation DAILY PRN (Reason: Shortness Of Breath) Discharge Orders: Discharge Order (Routine); Ordered 04/28/24 Ordered By: Dajuan Alexander/Other Patient Handouts: Multi-Dose Inhaler Care, Asthma Admission Data Admit Date/Time: 04/23/24 21:09 Attending Provider: Dajuan Westfall Admit Provider: Justino Hayes V. Primary Care Provider: Nandini Isabel Other Providers: Giovanni Doan; Jered Perez Other Interventions: Discharge Summary Assessment (RN) Last Done: 04/28/24 15:59 Hospital Stay Data Consultations 04/23/24 19:22 ED Decision to Admit Stat 04/23/24 21:01 Consult Pulmonology Routine Pending Results Patient Have Any Pending Studies at Discharge: No Discharge Instructions Given to Patient (Per Discharging Provider) Recommend close followup with PCP in 1-2 weeks. Replaced Breo with Trelergy. You will be on a prednisone taper starting tomorrow. You will complete your antibiotics: first dose will be tonight. We replaced your propranolol to metoprolol. We added singulair to help with your breathing and also added spironlactone which is a water pill that also helps with blood pressure. Coding Diagnoses Asthmatic bronchitis with acute exacerbation J45.901 Obesity hypoventilation syndrome E66.2 Diabetes mellitus type 2 with complications E11.8
== END 2024-04-28 16:50 | disposition home or self-care (01) | DRG 191 ==
LOC: ED 15:53 → SUATTDRO 21:09 → 3N 21:09